=== PATIENT | male | born 1940 | race Caucasian/White ===

== ENCOUNTER 2019-05-04 09:16 | Emergency (ER) | payer OTHER ==
--- OUTSIDE RECORDS SUMMARY | 2019-05-04 09:27 | XMS REPORT | Continuity of Care Document ---
:1940 External Reference #:[id number] Author Name Tejal Knight NP (transmitted by agent of provider Elida Florentino) Address [address] [facility], [address] [place] [id number] Care Team Providers Name Role Phone Tripp Rose MD - Endocrinology, Care Team Information Retail Business Manager Diabetes & Metabolism Linden Gamez MD - Cardiovascular Care Team Information Retail Business Manager Disease Problems Active Problems Provider Date Pure hypercholesterolemia Linden Gamez M.D. Onset: 01/25/2012 Dizziness and giddiness Linden Gamez M.D. Onset: 04/28/2011 Type 2 diabetes mellitus Linden Gamez M.D. Onset: 04/28/2011 Coronary arteriosclerosis Linden Gamez M.D. Onset: 04/28/2011 Aortic valve disorder Linden Gamez M.D. Onset: 04/28/2011 Social History Type Date Description Comments Sex Unknown Tobacco Use Start: Unknown Never Smoked Cigarettes Smoking Status Reviewed: 03/18/19 Never Smoked Cigarettes ETOH Use Denies alcohol use Tobacco Use Start: Unknown Patient has never smoked Recreational Drug Use Denies Drug Use Exercise Type/Frequency 03/2015 walks daily [address] [facility] Exercise Type/Frequency Exercises regularly Allergies, Adverse Reactions, Alerts Active Allergies Reaction Severity Comments Date PCN hives 05/26/2004 Ragweed 01/25/2012 Lactose (Intolerance) 01/25/2012 Medications Active Medications SIG Qnty Indications Ordering Provider Date Atorvastatin Calcium 1 by mouth every Unknown 02/17/2019 40mg day Tablets Flomax 1 by mouth every Unknown 02/17/2019 0.4mg Capsules day Flonase Allergy Relief 1 puff nasal Unknown 02/17/2019 once a day 50mcg/Act Suspension Diltiazem HCL ER 1 by mouth every 90caps I25.118 Linden Dorsey 07/18/2018 120mg day Magnolia Gamez Caps ER 24HR Plavix 1 by mouth every 90tabs I25.118 Linden Dorsey 09/25/2016 75mg Tablets day Magnolia Gamez Potassium Citrate 1080 mg 3 tablet Radha Davidson MD 08/15/2016 po twice daily Nitrostat one sl q5min up 30tabs I25.118 Linden Dorsey 06/15/2015 0.4mg Tablets to 3 doses as Magnolia Gamez Sub needed Aspirin 1 daily Linden Dorsey 12/20/2006 81mg Tablets Magnolia Gamez Allopurinol 1 daily 30tabs Linden Dorsey 12/20/2006 300mg Tablets Magnolia Gamez Fibercon (650mg) 1 tab Linden Dorsey 05/26/2004 500mg Chewtabs daily Magnolia Gamez Metformin HCL 1 by mouth two 60tabs Unknown 1000mg times per day Tablets Avapro 1 by mouth every 90tabs Linden Dorsey 75mg Tablets day Magnolia Gamez Vitamin C 1 by mouth every Unknown 1000mg Capsules day Finasteride 1 by mouth every Unknown 5mg Tablets day Vitamin B-12 1 by mouth every Unknown 500mcg day Tablets Immunizations Description No Information Available Vital Signs Date Vital Result Comment 03/18/2019 1:56pm Height 74 inches 6'2" Weight 197.00 lb Per pt Heart Rate 92 /min BP Systolic Sitting 144 mmHg Lue reg cuff BP Diastolic Sitting 78 mmHg Lue reg cuff O2 % BldC Oximetry 94 % On Ra BMI (Body Mass Index) 25.3 kg/m2 02/19/2019 9:30am Height 74 inches 6'2" Weight 199.00 lb Heart Rate 58 /min BP Systolic Sitting 124 mmHg BP Diastolic Sitting 60 mmHg O2 % BldC Oximetry 97 % BMI (Body Mass Index) 25.5 kg/m2 Neck Circumference in inches 17.75 Results Description No Information Available Procedures Date Code Description Status 03/05/2019 91800 Sleep Study Unattended,HRT Rate,Oxygen Sat,Resp Completed Effort/Airflow 02/18/2019 99927 EKG Tracing & Interpretation Completed 12/16/2018 07600 EKG Tracing & Interpretation Completed Medical Devices Description No Information Available Encounters Type Date Location Provider Dx Diagnosis Office Visit 03/18/2019 [facility] G47.33 Obstructive sleep 2:00p [facility] Knight apnea (adult) Elton (pediatric) R09.02 Hypoxemia Office Visit 02/19/2019 10:00a [facility] Kimmy Hodge R06.83 [facility] BILLY R09.02 Hypoxemia Office Visit 02/18/2019 8:40a [facility] Linden Dorsey I35.0 Nonrheumatic Magnolia Gamez aortic (valve) stenosis I25.118 [facility] [place] [facility] pctrs E78.00 Pure hypercholesterolemia, unspecified I10 Essential (primary) hypertension Office Visit 12/16/2018 11:30a [facility] Marina SEmber I35.0 Nonrheumatic Foster, N.P. aortic (valve) stenosis I25.118 [facility] heart disease of [place] [facility] pctrs E78.00 Pure hypercholesterolemia, unspecified I10 Essential (primary) hypertension G47.9 Sleep disorder, unspecified Assessments Date Code Description Provider 03/18/2019 G47.33 Obstructive sleep apnea (adult) Tejal Knight NP (pediatric) 03/18/2019 R09.02 Hypoxemia Tejal Knight NP 03/05/2019 G47.33 Obstructive sleep apnea (adult) Kimmy Hodge MD (pediatric) 02/19/2019 R06.83 Snoring Kimmy Hodge MD 02/19/2019 R09.02 Hypoxemia Kimmy Hodge MD 02/18/2019 I35.0 Nonrheumatic aortic (valve) stenosis Linden Gamez M.D. 02/18/2019 I25.118 Atherosclerotic heart disease of [place] Linden Gamez M.D. coronary artery with other forms of angina pectoris 02/18/2019 E78.00 Pure hypercholesterolemia, unspecified Linden Gamez M.D. 02/18/2019 I10 Essential (primary) hypertension Linden Gamez M.D. 12/16/2018 R94.31 Abnormal electrocardiogram [ECG] [EKG] Linden Gamez M.D. 12/16/2018 I35.0 Nonrheumatic aortic (valve) stenosis Marina Thomas, N.P. 12/16/2018 I25.118 Atherosclerotic heart disease of [place] Marina Thomas, N.P. coronary artery with other forms of angina pectoris 12/16/2018 I25.118 Atherosclerotic heart disease of [place] Linden Gamez M.D. coronary artery with other forms of angina pectoris 12/16/2018 E78.00 Pure hypercholesterolemia, unspecified Marina SEmber Thomas, N.P. 12/16/2018 I10 Essential (primary) hypertension Marina Thomas, N.P. 12/16/2018 I35.0 Nonrheumatic aortic (valve) stenosis Linden Gamez M.D. 12/16/2018 G47.9 Sleep disorder, unspecified Marina S. Foster, N.P. Plan of Treatment Future Appointment(s):05/01/2019 9:30 am - Tejal Knight NP at [facility]03/18/2019 - Tejal Knight NPG47.33 Obstructive sleep apnea (adult) (pediatric)Follow up:6 weeksRecommendations:You are being set up with CPAP for your sleep apnea through [facility] . They will call you to set up an appointment to get fit for a mask and molded goods spot picker your machine. If you have difficulty with your equipment, or need to replace your mask or hoses, please contact your homecare agency. If you have any further questions, please call the [facility] at [phone] Ifyou have any sleepiness while driving you MUST avoid operating a vehicle or machinery. If you feel tired while driving gizzard puller and take a nap or switch drivers. If you know you are sleepy and need togo somewhere, arrange for a ride or use public transportation. It is very important to not risk yoursafety or the safety of others.R09.02 Hypoxemia Functional Status Description No Information Available Mental Status Description No Information Available Referrals Refer to Reason for Referral Status Appt Date Kimmy Hodge MD eval for PHOEBE Sent 02/19/[address] [place] [address] [phone]
--- OUTSIDE RECORDS SUMMARY | 2019-05-04 09:27 | XMS REPORT | Continuity of Care Document ---
:1940 External Reference #:[id number] Author Name Tejal Knight NP (transmitted by agent of provider Elida Florentino) Address [address] [facility], [address] [place] [id number] Care Team Providers Name Role Phone Tripp Rose MD - Endocrinology, Care Team Information Housing Specialist Diabetes & Metabolism Linden Gamez MD - Cardiovascular Care Team Information Housing Specialist Disease Problems Active Problems Provider Date Pure hypercholesterolemia Linden Gamez M.D. Onset: 01/25/2012 Dizziness and giddiness Linden Gamez M.D. Onset: 04/28/2011 Type 2 diabetes mellitus Linden Gamez M.D. Onset: 04/28/2011 Coronary arteriosclerosis Linden Gamez M.D. Onset: 04/28/2011 Aortic valve disorder Linden Gamez M.D. Onset: 04/28/2011 Social History Type Date Description Comments Sex Unknown Tobacco Use Start: Unknown Never Smoked Cigarettes Smoking Status Reviewed: 05/01/19 Never Smoked Cigarettes ETOH Use Denies alcohol use Tobacco Use Start: Unknown Patient has never smoked Recreational Drug Use Denies Drug Use Exercise Type/Frequency 03/2015 walks daily 1 mile up [facility] Exercise Type/Frequency Exercises regularly Allergies, Adverse Reactions, [...] Magnolia Gamez Allopurinol 1 daily 30tabs Linden Dosrey 12/20/2006 300mg Tablets Magnolia Gamez Fibercon (650mg) [...] Available Vital Signs Date Vital Result Comment 05/01/2019 9:21am Height 74 inches 6'2" Weight 199.12 lb Per pt this am Heart Rate 60 /min BP Systolic Sitting 140 mmHg Lue large cuff BP Diastolic Sitting 80 mmHg Lue large cuff O2 % BldC Oximetry 98 % On Ra BMI (Body Mass Index) 25.6 kg/m2 03/18/2019 1:56pm Height 74 inches 6'2" Weight 197.00 lb Per pt Heart Rate 92 /min BP Systolic Sitting 144 mmHg Lue reg cuff BP Diastolic Sitting 78 mmHg Lue reg cuff O2 % BldC Oximetry 94 % On Ra BMI (Body Mass Index) 25.3 kg/m2 Results Description No Information Available Procedures Date Code Description Status 03/05/2019 37350 Sleep Study Unattended,HRT Rate,Oxygen Sat,Resp Completed Effort/Airflow 02/18/2019 57287 EKG Tracing & Interpretation Completed 12/16/2018 29085 EKG Tracing & Interpretation Completed Medical Devices Description No Information Available Encounters Type Date Location Provider Dx Diagnosis Office Visit 03/18/2019 [facility] Te[facility]al G47.33 Obstructive sleep 2:00p [facility] apnea (adult) [place] (pediatric) R09.02 Hypoxemia Office Visit 02/19/2019 10:00a [facility] Kimmy Hodge R06.83 [facility] [place] [facility] R09.02 Hypoxemia Office Visit 02/18/2019 8:40a [facility] Linden Dorsey I35.0 Nonrheumatic Magnolia Gamez aortic (valve) stenosis I25.118 Athscl heart disease of [place] [facility] pctrs E78.00 Pure hypercholesterolemia, unspecified I10 Essential (primary) hypertension Office Visit 12/16/2018 11:30a [facility] Marina Simon I35.0 Nonrheumatic William NEmberP. aortic (valve) stenosis I25.118 Athscl heart disease of [place] [facility] pctrs E78.00 Pure hypercholesterolemia, unspecified I10 Essential (primary) hypertension G47.9 Sleep disorder, unspecified Assessments Date Code Description Provider 05/01/2019 G47.33 Obstructive sleep apnea (adult) Tejal Knight NP (pediatric) 05/01/2019 R09.02 Hypoxemia Tejal Knight NP 03/18/2019 G47.33 Obstructive sleep apnea (adult) Tejal Knight NP (pediatric) 03/18/2019 R09.02 Hypoxemia Tejal Knight NP 03/05/2019 G47.33 Obstructive sleep apnea (adult) Kimmy Hogde MD (pediatric) 02/19/2019 R06.83 Snoring Kimmy Hodge MD 02/19/2019 R09.02 Hypoxemia Kimmy Hodge MD 02/18/2019 I35.0 Nonrheumatic aortic (valve) stenosis Linden Gamez M.D. 02/18/2019 I25.118 Atherosclerotic heart disease of [place] Linden Gamez M.D. coronary artery with other forms of angina pectoris 02/18/2019 E78.00 Pure hypercholesterolemia, unspecified Linden Gamez M.D. 02/18/2019 I10 Essential (primary) hypertension Linden Gamez M.D. 12/16/2018 R94.31 Abnormal electrocardiogram [ECG] [EKG] Linden Gamez M.D. 12/16/2018 I35.0 Nonrheumatic aortic (valve) stenosis Marina S. Foster, N.P. 12/16/2018 I25.118 Atherosclerotic heart disease of [place] Marina S. Foster, N.P. coronary artery with other forms of angina pectoris 12/16/2018 I25.118 Atherosclerotic heart disease of [place] Linden Gamez M.D. coronary artery with other forms of angina pectoris 12/16/2018 E78.00 Pure hypercholesterolemia, unspecified Marina S. Foster, N.P. 12/16/2018 I10 Essential (primary) hypertension Marina S. Foster, N.P. 12/16/2018 I35.0 Nonrheumatic aortic (valve) stenosis Linden Gamez M.D. 12/16/2018 G47.9 Sleep disorder, unspecified Marina S. Foster, N.P. Plan of Treatment Future Appointment(s):08/07/2019 9:30 am - Tejal Knight NP at [facility]05/01/2019 - Tejal Knight NPG47.33 Obstructive sleep apnea (adult) (pediatric)Follow up:3 monthsRecommendations:If you have difficulty with your equipment, or need to replace your mask or hoses, please contact your homecare agency, [facility] . If you have any further questions, please callthe Sleep Disorder Center at If you have any sleepiness while driving you MUST avoid operating a vehicle or machinery. If you feel tired while driving hand assembler for puller over and take a nap or switch drivers. If you know you are sleepy and need to go somewhere, arrange for a ride or use public transportation. It is very important to not risk your safety or the safety of others.R09.02 Hypoxemia Functional Status Description No Information Available Mental Status Description No Information Available Referrals Refer to Reason for Referral Status Appt Date Kimmy Hodge MD evyasmine for PHOEBE Sent 02/19/[address] [place] [address] [phone]
[2019-05-04] MEDS ORDERED: NS 0.9% 1000 ML** 1,000 ML IV ONE ×2 (09:28→10:24)
[2019-05-04] MEDS ORDERED: Famotidine IV* 10 MG/ML 2 ML (20 mg) IV SLOW PU ONE (09:30)
[2019-05-04] MEDS ORDERED: Dexamethasone IV* 4 MG/ML 1 ML (4 MG) IV SLOW PU ONE (09:30)
[2019-05-04] MEDS ORDERED: diPHENhydraMINE IV* 50 MG/ML 1 ml VIAL (BENADRYL) IV ONE (09:30)
--- NOTE | 2019-05-04 09:30 | ED ---
Skin Complaint - HPI Summary HPI Summary: This pt is a 78 Y/O M presenting to [facility] with a CC of a diffuse rash. He states that the rash is itchy and has been irritating since the onset. He states that he is weak and had diarrhea and nausea starting yesterday. He denies any vomiting. They ate out on 05/02/2019 and had [place] food. He states that he did not eat anything unordinary while they were at dinner. He denies any pain associated with the rash but states that the rash is very itchy. He denies any throat swelling, angioedema, and SOB. He has no known aggravating or alleviating factors. He has a PMHx of type 2 DM, CHF, and HTN. He states that he has an allergy to penicillin. - History of Current Complaint Chief Complaint: EDRashSkinAbscess Time Seen by Provider: 05/04/19 09:20 Stated Complaint: GENERAL ILLNESS PER EMS Hx Obtained From: Patient Onset/Duration: Started Days Ago - 2, Still Present Skin Exposure Onset/Duration: Days Ago - 2 Current Severity: None Pain Intensity: 0 Pain Scale Used: 0-10 Numeric Skin Location: Diffuse Character: Redness Aggravating Symptom(s): Nothing Alleviating Symptom(s): Nothing Associated Signs & Symptoms: Negative - throat swelling, angioedema, pain, and SOB, Nausea, Weakness, Rash - Additional Pertinent History Primary Care Physician: [id number] - Allergy/Home Medications Allergies/Adverse Reactions: Allergies Allergy/AdvReac Type Severity Reaction Status Date / Time Penicillins Allergy Mild Numbness Verified 03/19/19 11:36 LACTOSE INTOLERANCE Allergy Mild GI Upset Uncoded 03/19/19 11:37 PMH/Surg Hx/FS Hx/Imm Hx Previously Healthy: Yes Endocrine/Hematology History: Reports: Hx Anticoagulant Therapy, Hx Diabetes - II, Hx Anemia Denies: Hx Systemic Lupus Erythematosus Cardiovascular History: Reports: Hx Angina, Hx Coronary Artery Disease, Hx Hypercholesterolemia, Hx Hypertension - on medication Denies: Hx Congestive Heart Failure, Hx Pacemaker/ICD Respiratory History: Reports: Hx Seasonal Allergies GI History: Reports: Hx Gastrointestinal Bleed, Other GI Disorders - lactose intolerace Denies: Hx Jaundice History: Reports: Hx Kidney Stones - catheter treatment, Hx Renal Disease - kidney stones Denies: Hx Dialysis Musculoskeletal History: Reports: Hx Arthritis - mild knees, hands and hips Denies: Hx Rheumatoid Arthritis - OSTEOARTHRITIS Sensory History: Reports: Hx Contacts or Glasses Denies: Hx Hearing Aid Opthamlomology History: Reports: Hx Contacts or Glasses Psychiatric History: Denies: Hx Panic Disorder - Cancer History Cancer Type, Location and Year: PROSTATE Hx Chemotherapy: No Hx Radiation Therapy: Yes - Surgical History Surgical History: Yes Surgery Procedure, Year, and Place: MULTIPLE HEART CATH WITH 5 STENTS TOTAL - 1 - [place] 2-5 [facility]. COLONOSCOPIES & ENDOSCOPIES(BENIGN). LITHOTRIPSY TO BREAK UP KIDNEY STONE. - Immunization History Immunizations Up to Date: Yes Infectious Disease History: Denies: Traveled Outside the [place] in Last 30 Days - Family History Known Family History: Positive: Diabetes Negative: Hypertension - Social History Occupation: Employed Full-time Lives: With Family Alcohol Use: Rare Hx Substance Use: No Substance Use Type: Reports: None Hx Tobacco Use: No Smoking Status (MU): Never Smoked Tobacco Review of Systems ENT: Negative - throat swelling, tongue swelling Negative: Shortness Of Breath Positive: Diarrhea, Nausea. Negative: Vomiting Positive: Rash All Other Systems Reviewed And Are Negative: Yes Physical Exam - Summary Physical Exam Summary: VITAL SIGNS: Reviewed. GENERAL: Patient is a well-developed and nourished male who is lying comfortable in the stretcher. Patient is not in any acute respiratory distress. HEAD AND FACE: No signs of trauma. No ecchymosis, hematomas or skull depressions. No sinus tenderness. EYES: PERRLA, EOMI x 2, No injected conjunctiva, no nystagmus. EARS: Hearing grossly intact. Ear canals and tympanic membranes are within normal limits. MOUTH: Oropharynx within normal limits. NECK: Supple, trachea is midline, no adenopathy, no JVD, no carotid bruit, no c- spine tenderness, neck with full ROM. CHEST: Symmetric, no tenderness at palpation LUNGS: Clear to auscultation bilaterally. No wheezing or crackles. CVS: Regular rate and rhythm, S1 and S2 present, no murmurs or gallops appreciated. ABDOMEN: Soft, non-tender. No signs of distention. No rebound no guarding, and no masses palpated. Bowel sounds are normal. EXTREMITIES: FROM in all major joints, no edema, no cyanosis or clubbing. NEURO: Alert and oriented x 3. No acute neurological deficits. Speech is normal and follows commands. SKIN: Dry and warm. Diffuse patches of erythema with irregular borders. Triage Information Reviewed: Yes Vital Signs On Initial Exam: Temp Pulse Resp BP SpO2 FiO2 97.4 F 75 19 130/73 97 05/04/19 09:16 05/04/19 09:16 05/04/19 09:16 05/04/19 09:16 05/04/19 09:16 Vital Signs Reviewed: Yes Procedures - Sedation Patient Received Moderate/Deep Sedation with Procedure: No Diagnostics - Laboratory Result Diagrams: 05/04/19 09:34 05/04/19 09:34 Lab Statement: Any lab studies that have been ordered have been reviewed, and results considered in the medical decision making process. - Radiology CXR Radiology Interpretation Completed By: Radiologist Summary of Radiographic Findings: No evidence for acute intrathoracic disease. ED physician has review this report. - EKG 1002 Cardiac Rate: NL - 85 BPM EKG Rhythm: Sinus Rhythm ST Segment: Normal EKG Comparison: No Significant Change - 08/27/2015 Summary of EKG Findings: An EKG at 1002 reveals Sinus arrhythmia at 85 BPM, nml axis, Q waves in leads II, III, AVF. No STEMI. No acute changes since 2015. Interpreted by Dr. Reinoso, 1009 05/04/2019. Course/Dx - Course Assessment/Plan: This pt is a 78 Y/O M presenting to [facility] with a CC of a diffuse rash. He states that the rash is itchy and has been irritating since the onset. He states that he is weak and had diarrhea and nausea starting yesterday. He denies any vomiting. They ate out on 05/02/2019 and had [place] food. He states that he did not eat anything unusual while they were at dinner. He denies any pain associated with the rash but states that the rash is very itchy. He denies any throat swelling, angioedema, and SOB. He has no known aggravating or alleviating factors. He has a PMHx of type 2 DM, CHF, and HTN. He states that he has an allergy to penicillin. Blood work without a significant abnormality except for that she is under 0.4, glucose is 283, lactic acid is 2.3 with no signs of infection. I believe lactic acid is elevated secondary to hyperglycemia. Magnesium was 1.4 for which he was given magnesium IV. Urinalysis is negative for UTI. In the ED course the patient was given Benadryl, Pepcid and slight also prednisone since the patient is diabetic. After these medications the symptoms resolved. Patient was eating and drinking well with no complaints. Therefore the patient will be discharged home with follow-up with PCP. Patient was recommended to follow up his sugars closely. He understands and agrees. I discussed all the findings and test results with the patient. Patient was instructed to return to the emergency room immediately if any of the symptoms return or worsen . Plan of care was discussed with the patient and understands and agrees. All questions were answered at patient satisfaction. There were no further complaints or concerns. Lung exam before discharge: CTA B/L. Good air exchange. No wheezing or crackles heard. CVS: S1 and S2 present. No murmurs appreciated. Patient is alert and oriented x 3. Patient is hemodynamically stable. Patient will be discharged home with follow up barbering teacher in the next 2-3 days - Diagnoses Provider Diagnoses: Allergic reaction, Weakness Discharge ED - Sign-Out/Discharge Documenting (check all that apply): Patient Departure - discharge - Discharge Plan Condition: Stable Disposition: HOME Prescriptions: diPHENhydraMINE PO* [Benadryl PO 25 MG TAB*] 25 mg PO TID PRN #30 tab PRN Reason: Allergy Symptoms Famotidine TAB* [Pepcid 20 MG TAB*] 20 mg PO DAILY #10 tab predniSONE 10 mg TAB [Deltasone 10 MG TAB*] 10 mg PO DAILY #4 tab Patient Education Materials: Urticaria (ED), Allergies (ED), Weakness (ED) Referrals: Tripp Rose MD [Primary Care Provider] - 2 Days Additional Instructions: PLEASE RETURN TO THE ED IMMEDIATELY FOR WORSENING OR CONCERNING SYMPTOMS AND FOLLOW UP WITH YOUR PRIMARY CARE PHYSICIAN IN 1-3 DAYS. - Billing Disposition and Condition Condition: STABLE Disposition: Home - Attestation Statements Document Initiated by Scribe: Yes Documenting Scribe: Gary Hidalgo Provider For Whom Isai is Documenting (Include Credential): Bj Reinoso MD Scribe Attestation: Gary Willis, scribed for Bj Reinoso MD on 05/04/19 at 1813. Scribe Documentation Reviewed: Yes Provider Attestation: The documentation as recorded by the Gary avery accurately reflects the service I personally performed and the decisions made by me, Bj Reinoso MD Status of Scribe Document: Viewed
[2019-05-04 09:47] LABS: ABS Eosinophils 0.2 10^3/ul (0-0.6); ABS Lymphocytes 0.4 10^3/ul (1.0-4.8); ABS Monocytes 0.7 10^3/ul (0-0.8); ABS Neutrophils 10.1 10^3/ul (1.5-7.7); Eosinophil % 1.4 %; Hematocrit 46 % (42-52); Hemoglobin 15.8 g/dL (14.0-18.0); Lymphocyte % 3.2 %; Mean Corpuscular HGB Conc 35 g/dL (31-36); Mean Corpuscular Hemoglobin 31 pg (27-31); Mean Corpuscular Volume 89 fL (80-94); Mean Platelet Volume 8.5 fL (7.4-10.4); Nucleated Red Blood Cells % 0.1; Platelet Count 168 10^3/uL (150-450); Red Blood Count 5.15 10^6 /uL (4.18-5.48); Red Cell Distribution Width 15 % (10-15); White Blood Count 11.4 10^3/uL (3.5-10.8)
[2019-05-04 10:00] LABS: ALT 11 U/L (7-52); AST 11 U/L (13-39); Albumin 3.5 g/dL (3.2-5.2); Albumin/Globulin Ratio 1.6 (1-3); Alkaline Phosphatase 80 U/L (34-104); Anion Gap 8 mmol/L (2-11); BUN/Creatinine Ratio 27.5 (8-20); Blood Urea Nitrogen 30 mg/dL (6-24); CO2 Carbon Dioxide 24 mmol/L (22-32); Calcium 8.2 mg/dL (8.6-10.3); Chloride 103 mmol/L (101-111); Creatine Kinase 81 U/L (10-223); EGFR African American 79.4 (>60); EGFR Non-African American 65.6 (>60); Globulin 2.2 g/dL (2-4); Glucose 282 mg/dL (70-100); Magnesium 1.4 mg/dL (1.9-2.7); Sodium 135 mmol/L (135-145); Total Protein 5.7 g/dL (6.4-8.9)
[2019-05-04 10:01] LABS: Troponin I 0.01 ng/mL (<0.03)
[2019-05-04] MEDS ORDERED: Magnesium Sulfate 1 GM IV* 1 GM/100 ML BAG IV ONE (10:24)
[2019-05-04 10:30] LABS: Alcohol < 10 mg/dL (<10)
[2019-05-04 10:45] LABS: TSH (Thyroid Stimulating Horm) 1.93 mcIU/mL (0.34-5.60)
[2019-05-04 11:56] LABS: Urine Appearance Clear; Urine Bilirubin Negative (Negative); Urine Blood Negative (Negative); Urine Color Yellow; Urine Glucose 3+(>=500 mg/dL) (Negative); Urine Ketones Negative (Negative); Urine Nitrite Negative (Negative); Urine Protein Negative (Negative); Urine Specific Gravity 1.015 (1.010-1.030); Urine Urobilinogen Negative (Negative)
[2019-05-04 12:32] VITALS: BP 151/81
== END 2019-05-04 12:31 | disposition home or self-care (01) ==
LOC: ED 09:16
DX: T78.40XA Allergy, unspecified, initial encounter (principal); R53.1 Weakness; X58.XXXA Exposure to other specified factors, initial encounter; Z88.0 Allergy status to penicillin; E11.9 Type 2 diabetes mellitus without complications; I50.9 Heart failure, unspecified; I11.0 Hypertensive heart disease with heart failure; D64.9 Anemia, unspecified; I25.10 Atherosclerotic heart disease of native coronary artery without angina pectoris; E78.00 Pure hypercholesterolemia, unspecified; Z95.5 Presence of coronary angioplasty implant and graft; Z85.46 Personal history of malignant neoplasm of prostate; Z87.442 Personal history of urinary calculi; Z79.899 Other long term (current) drug therapy
CPT/HCPCS: 36415; 71045; 80053; 80320; 81003; 82550; 83605; 83735; 84443; 84484; 85025; 86140; 93005; 96361; 96365; 96375; 99282; G0480; J1100; J1200; J3475

== ENCOUNTER 2019-05-04 19:43 | Inpatient (IN) | payer OTHER ==
--- NOTE | 2019-05-04 19:51 | ED ---
Dizziness - HPI Summary HPI Summary: The patient is a 78 y/o male arriving by ambulance to [facility] with a chief complaint of lightheadedness and rash worsening today. He reports that he had been seen earlier in the day for the lightheadedness he began experiencing last night accompanied by nausea and a sustained fall. He was diagnosed with possible allergic reaction as he had new mushrooms and seafood at a Italian restaurant last night. After being discharged from the ED, he was prescribed Benadryl and Prednisone, which he has taken today. He then developed some diarrhea today. After dinner, he also noticed a diffuse erythematous and pruritic rash and return of the lightheadedness, which has been causing him to have instability ambulating. He denies a syncopal episode or SOB. EMS report stable vitals with BP of 110/70mmHg. He is not currently in pain. PMHx: DM, HTN , HLD, angina, cardiac stents, CAD, kidney stones. Nonsmoker, rare EtOH, no substance use. Medications reviewed. Allergies noted. - History Of Current Complaint Stated Complaint: HIVES PER EMS Hx Obtained From: Patient, EMS Onset/Duration: Still Present Severity Currently: Moderate Character: Lightheaded Aggravating Factor(s): Other - ambulation Alleviating Factor(s): Rest, Lying Down Associated Signs And Symptoms: Positive: Nausea, Diarrhea, Unsteady Gait, Other : - diffuse erythematous and pruritic rash; Negative: syncope. Negative: SOB - Allergies/Home Medications Allergies/Adverse Reactions: Allergies Allergy/AdvReac Type Severity Reaction Status Date / Time Penicillins Allergy Mild Numbness Verified 03/19/19 11:36 lactose AdvReac Mild GI Upset Verified 05/04/19 22:42 PMH/Surg Hx/FS Hx/Imm Hx Endocrine/Hematology History: Reports: Hx Anticoagulant Therapy, Hx Diabetes - II, Hx Anemia Denies: Hx Systemic Lupus Erythematosus Cardiovascular History: Reports: Hx Angina, Hx Coronary Artery Disease, Hx Hypercholesterolemia, Hx Hypertension - on medication Denies: Hx Congestive Heart Failure, Hx Pacemaker/ICD Respiratory History: Reports: Hx Seasonal Allergies GI History: Reports: Hx Gastrointestinal Bleed, Other GI Disorders - lactose intolerace Denies: Hx Jaundice History: Reports: Hx Kidney Stones - catheter treatment, Hx Renal Disease - kidney stones Denies: Hx Dialysis Musculoskeletal History: Reports: Hx Arthritis - mild knees, hands and hips Denies: Hx Rheumatoid Arthritis - OSTEOARTHRITIS Sensory History: Reports: Hx Contacts or Glasses Denies: Hx Hearing Aid Opthamlomology History: Reports: Hx Contacts or Glasses Psychiatric History: Denies: Hx Panic Disorder - Cancer History Cancer Type, Location and Year: PROSTATE Hx Chemotherapy: No Hx Radiation Therapy: Yes - Surgical History Surgical History: Yes Surgery Procedure, Year, and Place: MULTIPLE HEART CATH WITH 5 STENTS TOTAL - 1 - [place] 2[facility]. COLONOSCOPIES & ENDOSCOPIES(BENIGN). LITHOTRIPSY TO BREAK UP KIDNEY STONE. - Family History Known Family History: Positive: Diabetes Negative: Hypertension - Social History Alcohol Use: Rare Hx Substance Use: No Substance Use Type: Reports: None Hx Tobacco Use: No Smoking Status (MU): Never Smoked Tobacco Review of Systems Negative: Shortness Of Breath Positive: Diarrhea, Nausea Positive: Rash - diffuse, erythematous, pruritic Neurological: Other - lightheadedness with unsteady gait Negative: Syncope All Other Systems Reviewed And Are Negative: Yes Physical Exam - Summary Physical Exam Summary: Appearance: Well-appearing, Well-nourished, lying in bed comfortably Skin: Warm, dry, Diffuse urticarial rash on the trunk and to a lesser extent on upper extremities Eyes: sclera anicteric, no conjunctival pallor ENT: mucous membranes moist, pharynx appears normal Neck: Supple, nontender Respiratory: Clear to auscultation, no signs of respiratory distress Cardiovascular: Normal S1, S2. No murmurs. Normal distal pulses in tibial and radial bilaterally. Abdomen: Soft, nontender, normal active bowel sounds present Musculoskeletal: Normal, Strength/ROM Intact Neurological: A&Ox3, awake and alert, mentation is normal, speech is fluent and appropriate Psychiatric: affect is normal, does not appear anxious or depressed Triage Information Reviewed: Yes Vital Signs Reviewed: Yes Procedures - Sedation Patient Received Moderate/Deep Sedation with Procedure: No Diagnostics - Laboratory Result Diagrams: 05/04/19 21:04 05/04/19 20:26 Lab Statement: Any lab studies that have been ordered have been reviewed, and results considered in the medical decision making process. Dizzy Course/Dx - Course Course Of Treatment: 78 y/o male with diabetic and cardiac history presenting by ambulance with concern for diffuse erythematous and pruritic rash, nausea, diarrhea, and episodes of lightheadedness with unsteady gait but without a complete syncopal event, although he has fallen. No SOB. He was seen earlier today for a possible allergic reaction, which he has been taking Benadryl and Prednisone for since discharge. Physical exam reveals diffuse urticarial rash on the trunk and to a lesser extent on the upper extremities, but his exam is otherwise benign. Blood work obtained to reveal absolute lymphocytes of 0.3, carbon dioxide of 18, BUN of 28, glucose of 301, calcium of 7.7, lactic acid of 3.3, direct bili of 0.2, AST of 12, and total protein of 5.3. In the ED course, the patient was administered fluids, Atarax, and Decadron 8mg. POC blood glucose of 329 so patient will be given Insulin. Dr. Frazier from the hospitalist services has accepted the patient for admission. Patient understands and agrees with the plan. - Diagnoses Provider Diagnoses: Anaphylaxis - Provider Notifications Discussed Care Of Patient With: Erin Frazier - hospitalist Time Discussed With Above Provider: 20:35 Instructed by Provider To: Other - I discussed the patients case with Dr. Frazier , who accepts the patient for admission. Discharge ED - Sign-Out/Discharge Documenting (check all that apply): Patient Departure - Patient accepted for admission by Dr. Frazier. - Discharge Plan Condition: Stable Disposition: ADMITTED TO [facility] - Billing Disposition and Condition Condition: STABLE Disposition: Admitted to [facility] - Attestation Statements Document Initiated by Isai: Yes Documenting Scribe: Quita Guadarrama Provider For Whom Isai is Documenting (Include Credential): Dr. Jarek Rucker MD Scribe Attestation: Quita Willis scribed for Dr. Jarek Rucker MD on 05/05/19 at 0126. Scribe Documentation Reviewed: Yes Provider Attestation: The documentation as recorded by the Quita avery accurately reflects the service I personally performed and the decisions made by me, Dr. Jarek Rucker MD Status of Scribe Document: Viewed
[2019-05-04] MEDS ORDERED: hydrOXYzine HCL TAB* 50 MG PO ONE (20:02)
[2019-05-04] MEDS ORDERED: NS 0.9% 1000 ML** 1,000 ML IV ONE (20:02)
[2019-05-04] MEDS ORDERED: Dexamethasone IV* 4 MG/ML 1 ML (4 MG) PO ONE (20:28)
[2019-05-04] MEDS ORDERED: Insulin REGULAR(*) 1 UNITS UNIT SUBCUT ONE (20:29)
[2019-05-04] MEDS ORDERED: Dexamethasone IV* 4 MG/ML 1 ML (4 MG) IV SLOW PU ONE (20:35)
[2019-05-04 20:48] LABS: BUN/Creatinine Ratio 24.1 (8-20); Calcium 7.7 mg/dL (8.6-10.3); EGFR African American 73.9 (>60); EGFR Non-African American 61.1 (>60); Potassium 4.2 mmol/L (3.5-5.0)
[2019-05-04 21:21] LABS: Albumin 3.2 g/dL (3.2-5.2); Albumin/Globulin Ratio 1.5 (1-3); Globulin 2.1 g/dL (2-4); Indirect Bilirubin 0.7 mg/dL (0.3-1.0); Total Bilirubin 0.9 mg/dL (0.2-1.0); Total Protein 5.3 g/dL (6.4-8.9)
[2019-05-04 21:25] LABS: ABS Lymphocytes 0.3 10^3/ul (1.0-4.8); ABS Monocytes 0.2 10^3/ul (0-0.8); ABS Neutrophils 5.9 10^3/ul (1.5-7.7); Eosinophil % 0.5 %; Hematocrit 43 % (42-52); Hemoglobin 14.6 g/dL (14.0-18.0); Lymphocyte % 5.1 %; Mean Corpuscular HGB Conc 34 g/dL (31-36); Mean Corpuscular Hemoglobin 30 pg (27-31); Mean Corpuscular Volume 89 fL (80-94); Mean Platelet Volume 8.7 fL (7.4-10.4); Nucleated Red Blood Cells % 0.1; Platelet Count 183 10^3/uL (150-450); Red Blood Count 4.81 10^6 /uL (4.18-5.48); Red Cell Distribution Width 15 % (10-15); White Blood Count 6.5 10^3/uL (3.5-10.8)
[2019-05-04] MEDS ORDERED: Nitroglycerin TAB 0.4 MG* 0.4 MG TAB SL PRN (22:11)
[2019-05-04] MEDS ORDERED: Ondansetron INJ* 2 MG/ML VIAL IV PRN (22:13)
[2019-05-04] MEDS ORDERED: Acetaminophen TAB* 325 MG PO PRN (22:13)
[2019-05-04] MEDS ORDERED: Dextrose 50% VIAL 50 ml IV PUSH PRN (22:15)
[2019-05-04] MEDS ORDERED: NS 0.9% 1000 ML** 1,000 ML IV SCH (22:15)
[2019-05-05] MEDS: diPHENhydraMINE IV* 50 MG/ML 1 ml VIAL (BENADRYL) IV SCH ×4 (02:02→20:14)
[2019-05-05] MEDS: Enoxaparin(*) 40 MG/0.4 ML SYR SUBCUT SCH ×2 (02:03→20:17)
[2019-05-05] MEDS: Insulin LISPRO* 1 UNITS UNIT SUBCUT SCH ×7 (02:39→20:33)
--- NOTE | 2019-05-05 03:17 | HP ---
CC: Dr. Tripp Rose HISTORY AND PHYSICAL: DATE OF ADMISSION: 05/04/19 PRIMARY CARE PROVIDER: Dr. Tripp Rose. ASSISTED LIVING ADMINISTRATOR: Marielle Hussein, his . CODE STATUS: Full. SOURCE OF INFORMATION: HPI is obtained from the patient and his ; they are good historians. HISTORY OF PRESENT ILLNESS: This is a 78-year-old male with past medical history of CAD, status post PCI first in 2003 with repeat in 2014 for in-stent restenosis, chart diagnosis of heart failure with preserved ejection fraction with last EF normal in 2016 cath with what sounds like recurrent stable angina; non-insulin- dependent diabetes; hypertension; hyperlipidemia; history of anemia ; PHOEBE, recently started on CPAP; gout, who presented to the emergency room twice today, first this morning for diffuse rash. The patient reports that on Sunday, he started to feel vaguely and generally unwell but without diarrhea or rash. During the day, he just describes general malaise with no other concerning features on review of systems. He and his went out for [place] food to a place they typically do not eat at on Sunday evening, and on Sunday morning, he noticed that he started developing a diffuse itchy rash about 10 to 12 hours after his meal. He also had acute onset of diarrhea with nausea, no vomiting. His diarrhea persisted over the course of Sunday with 3 to 4 times a day without blood and he had associated weakness and presyncopal symptoms while standing and thus he decided to present to the emergency room. His first ER presentation was this morning with normal vital signs and the patient was noted to have a diffuse erythematous rash. Labs showed mild leukocytosis of 11, lactic acid was elevated at 2.2, glucose was elevated at 280 , LFTs were normal. He was given IV Decadron for presumed urticaria and Benadryl and famotidine and sent home with oral prednisone. The patient reports he felt great for the first few hours after he got home from the emergency room and took his oral prednisone and Benadryl as instructed. He then said later in the afternoon he had again 2 episodes of loose diarrhea, started to feel progressively itchy and dizzy and decided to re-present to the emergency room. In this emergency room presentation, his vital signs showed temperature of 98, heart rate of 110, respiratory rate of 20, 96% on room air, and blood pressure of 140/72. Labs showed resolution of prior leukocytosis, elevated lactic acid of 3.3, stable LFTs, UA was clear from this morning and flu test was ultimately negative. Chest x-ray showed no acute thoracic pathology. His rash had actually seemed to progress since the documented exam from this morning and the hospitalist team was asked to further evaluate the patient. Of note, he has no evidence of airway compromise, no swelling in the mouth or lips or itching of throat or mouth. The patient denies starting new medications during this time. PAST MEDICAL HISTORY: 1. CAD, status post PCI in 2003, repeat in 2014 for in-stent restenosis. 2. Chart diagnosis of heart failure with preserved ejection fraction with EF normal in 2016 cath. 3. Recurrent stable angina. 4. Jia-aykgrrn-exvwjcgjj diabetes. 5. Hypertension. 6. Hyperlipidemia. 7. History of anemia. 8. PHOEBE, intermittently compliant on CPAP. 9. B12 deficiency. 10. OA of knee. 11. History of diverticulosis. 12. History of nephrolithiasis. PAST SURGICAL HISTORY: Status post cystoscopy and left ureteral stent. HOME MEDICATIONS: Include: 1. Ascorbic acid 500 mg p.o. daily. 2. Allopurinol 300 mg p.o. daily. 3. Aspirin 81 mg p.o. daily. 4. Diltiazem 100 mg p.o. daily. 5. Diphenhydramine 25 mg p.o. t.i.d. p.r.n. which was prescribed from this morning hospitalization. 6. Famotidine 20 mg p.o. daily which was prescribed from this morning hospitalization. 7. Ferrous sulfate 325 mg p.o. daily. 8. FiberCon 500 mg p.o. daily. 9. Finasteride 5 mg p.o. daily. 10. Irbesartan 75 mg p.o. daily. 11. Nitroglycerin 0.4 mg sublingual q.5 minutes p.r.n. 12. Prednisone 10 mg p.o. daily that was prescribed this morning. 13. Ticagrelor 90 mg p.o. b.i.d. 14. Vitamin B12 of 2500 mcg p.o. daily. ALLERGIES: PENICILLIN and LACTOSE intolerance. No other known drug allergies. FAMILY HISTORY: His father from heart disease in his 50s, mother from heart disease in her 50s. 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 He lives with his . He is a lifetime non-tobacco user. He is a former alcohol user but quit greater than 10 years ago with no history of illicits. REVIEW OF SYSTEMS: Constitutional: Positive for malaise, but negative for fevers, positive for some episodes of shaking chills. HEENT: Negative for headaches, vision changes, sore throat or other upper respiratory symptoms. Adamantly denies any difficulty swallowing, drooling, itchy mouth, swelling of lips or tongue. Cardiovascular: Negative for chest pain, palpitations, or orthopnea. Respiratory: Negative for shortness of breath, cough, pleuritic chest pain. GI: Positive for diarrhea. Negative for nausea or vomiting. Negative for constipation. Negative for melena or hematemesis. Negative for abdominal pain. : Negative for dysuria or hematuria. Musculoskeletal: Negative for myalgias, arthralgias, or weakness. Skin: Positive for diffuse itchy rash without discharge. Neurologic: Negative for focal weakness or numbness. Psychiatric: Negative for depression or anxiety. Endocrine: Negative for polyuria or polydipsia. Heme: Negative for easy bruising, bleeding, or lymphadenopathy. PHYSICAL EXAMINATION GENERAL APPEARANCE: This is a well-appearing elderly gentleman lying in bed, in no acute distress other than he has a mild tremor. A and O x3, although forgetful, slightly hard of hearing. VITAL SIGNS: At the time of physical exam, blood pressure is 140/72, heart rate 100 and sinus, respiratory rate 20, 96% on room air, temperature is 98 even during episode of shaking chills. HEENT: Pupils are equal and reactive. Extraocular muscles are intact. Sclerae are anicteric. Oropharynx with Mallampati 4 but no uvular edema. No evidence of swelling to tongue, buccal mucosa, posterior oropharynx or lips. NECK: Supple with no supraclavicular or cervical lymphadenopathy. RESPIRATORY: Lungs are clear to auscultation bilaterally without wheeze. CARDIAC: Regular rate and rhythm with no murmurs, rubs, or gallops. ABDOMEN: Belly is soft, nontender, and nondistended. SKIN: On bilateral lower extremities, anterior abdomen, lower sacrum, and anterior chest wall, the patient has diffuse blanchable erythematous patches with no vesicles or discharge, consistent with [id number] appearance consistent with urticarial appearance of rash. MUSCULOSKELETAL: Moves all 4 limbs spontaneously. EXTREMITIES: Lower legs are warm and well perfused with palpable pulses and no edema. NEURO: Cranial nerves II through XII are intact with no focal neurologic deficits. A and O x3. PSYCH: He is pleasant and cooperative. DIAGNOSTIC STUDIES/LAB DATA: Labs on this admission: White blood cell count 6.5, hemoglobin 14.6, hematocrit 43, platelets 183. Differential on the CBC shows no evidence of increased eosinophils, neutrophils. Lymphocytes are moderately low at 0.3. Chemistries shows sodium 135, potassium 4.5, chloride 107, carbon dioxide 18, anion gap 10, BUN 28, creatinine 1.16. Lactic acid elevated at 3.3. Glucose 301. AST 12, ALT 10, alk phos 74, total protein 5.3. UA was unremarkable from this morning. Influenza A and B are pending. Imaging includes chest x-ray which shows no acute intrathoracic pathology, unchanged from prior. EKG from this morning at 10 a.m. showed normal sinus rhythm with no evidence of acute ST changes. Lab studies and imaging reviewed by myself. ASSESSMENT AND PLAN: 78-year-old male with past medical history of coronary artery disease; non- insulin-dependent diabetes; hypertension; hyperlipidemia; obstructive sleep apnea; recently started on CPAP; gout, and heart failure with preserved ejection fraction, who presented to the emergency room twice today for acute onset of rash, diarrhea and presyncopal symptoms starting 24 hours ago with only clear citing factor of eating out at a [place]ese restaurant. The differential for this diffuse urticarial-appearing rash with associated diarrhea includes allergic reaction (IgE-mediated), although would be uncommon for an IgE-mediated response given the timing was delayed, it is not improbable , other primary causes of mast cell activation (MCAS, iMCAS) could be explored. Finally while he denies new medications or drugs and his rash seems more urticarial than mobilliform, he could have developed a Type IV hypersensitivity to an unknown exposure/drug. He also has associated elevated lactic acid with no signs of hypoperfusion or any other acute localizing infectious symptoms. He will be hospitalized for symptoms of presyncope, progressive urticarial allergic-appearing rash with failure of oral prednisone, and diarrhea. 1. Urticaria with associated diarrhea. Again, above concern for an IgE- mediated acute reaction. He has no evidence of increasing eosinophils, no obvious abnormalities on diff, as per above primary mast cell disorders could be investigated with tryptase levels if no improvement. Consider Biopsy. If this is infact a Type IV reaction, there is no evidence of LFT dysfunction to suggest DRESS or other systemic T cell mediated disease at this time. -No evidence of angioedema or airway compromise and stable for floor admission -It is possible that the oral prednisone was not well absorbed by his gut mucosa in the setting of acute diarrhea and thus it is reasonable to admit the patient for IV Decadron equivalent of 40 mg prednisone at 6 mg IV q.8 hours which can be weaned q. 12 with associated Benadryl 25 mg IV q.4 hours for a max of 6 doses. -Famotidine will also be given for max therapy of H1, H2 bev and associated glucocorticoids. -ESR added for AM labs -Blood cultures and flu swabs were taken and unlikely that there is underlying infectious component to this as he did have one episode of shaking chills, although he has no localizing signs of symptoms to suggest this. 2. Presyncopal like episodes at home. Orthostatics will be checked. He received 1 L of normal saline. We will continue on maintenance IV fluids at 150 cc for an additional 1 L. 3. Diarrhea. Stool cultures are ordered along with fecal lactoferrin. We can advance diet as tolerated. 4. Elevated lactic acid. The patient reports he is not on metformin. He has no evidence of acidosis or hypoperfusion associated with type A lactic acidosis , suspect type B lactic acidosis associated with DM and continue IV fluids and recheck in the morning. 5. CAD. We will continue home aspirin, Brilinta, statin as per prior. 6. Vey-hmtbayw-ihswwbvol diabetes. Dr. Rose is the patient's primary care and has A1c on file. We will hold on checking this in this hospitalization. He is hyperglycemic in the setting of steroids. Lispro will be added for short-term coverage. He is not on any home medications or at least on the list that is provided. A1c as per PCP. 7. Hypertension. Low-dose losartan and diltiazem as per home meds. 8. Gout. Allopurinol will be continued. 9. History of nephrolithiasis. Potassium citrate. 10. PHOEBE. We will offer CPAP as he is struggling with compliance. 11. DVT prophylaxis. We will offer the patient Lovenox for high risk given age. 12. Code status is full. 13. Disposition: Stable for admission for allergic reaction to [facility] [place] without tele. TIME SPENT: Sixty minutes was spent on planning this admission with over half of that spent directly at the bedside with the patient to provide direct patient care. Plan of care is discussed with the patient and his , they have no further questions. [id number]/CPS #: [id number]
[2019-05-05 05:38] LABS: ABS Eosinophils 0.1 10^3/ul (0-0.6); ABS Lymphocytes 0.3 10^3/ul (1.0-4.8); ABS Monocytes 0.4 10^3/ul (0-0.8); ABS Neutrophils 4.6 10^3/ul (1.5-7.7); Eosinophil % 1.6 %; Hematocrit 41 % (42-52); Hemoglobin 14.2 g/dL (14.0-18.0); Lymphocyte % 4.7 %; Mean Corpuscular HGB Conc 35 g/dL (31-36); Mean Corpuscular Hemoglobin 31 pg (27-31); Mean Corpuscular Volume 88 fL (80-94); Mean Platelet Volume 8.6 fL (7.4-10.4); Platelet Count 175 10^3/uL (150-450); Red Blood Count 4.64 10^6 /uL (4.18-5.48); Red Cell Distribution Width 15 % (10-15); White Blood Count 5.4 10^3/uL (3.5-10.8)
[2019-05-05 05:57] LABS: Albumin 2.9 g/dL (3.2-5.2); Albumin/Globulin Ratio 1.6 (1-3); BUN/Creatinine Ratio 27.3 (8-20); Calcium 7.6 mg/dL (8.6-10.3); EGFR African American 78.5 (>60); EGFR Non-African American 64.9 (>60); Globulin 1.8 g/dL (2-4); Potassium 3.8 mmol/L (3.5-5.0); Total Bilirubin 0.9 mg/dL (0.2-1.0); Total Protein 4.7 g/dL (6.4-8.9)
[2019-05-05] MEDS ORDERED: Dexamethasone IV* 4 MG/ML 1 ML (4 MG) IV SLOW PU SCH (06:00)
[2019-05-05 06:46] LABS: Erythrocyte Sed Rate 1 mm/Hr (0-19)
[2019-05-05] MEDS: Aspirin EC TAB* 81 MG TAB.EC PO SCH (08:09)
[2019-05-05] MEDS: Ticagrelor* 90 MG TAB PO SCH ×2 (08:09→21:32)
[2019-05-05] MEDS: Calcium Polycarbophil TAB* 625 MG PO SCH (08:09)
[2019-05-05] MEDS: Allopurinol TAB* 300 MG PO SCH (08:09)
[2019-05-05] MEDS: Atorvastatin* 80 MG TAB PO SCH (08:09)
[2019-05-05] MEDS: Cyanocobalamin TAB* 500 MCG PO SCH (08:09)
[2019-05-05] MEDS: Finasteride TAB* 5 MG PO SCH (08:09)
[2019-05-05] MEDS: Ascorbic Acid TAB* 500 MG PO SCH (08:09)
[2019-05-05] MEDS: Famotidine IV* 10 MG/ML 2 ML (20 mg) IV SLOW PU SCH ×2 (08:10→20:24)
[2019-05-05] MEDS: POTASSIUM CITRATE PO SCH ×2 (08:11→20:08)
--- NOTE | 2019-05-05 08:19 | PN ---
Subjective - Subjective Reason for Note: Progress Note History: I reviewed Jarred Loera's presentation with the patient and the thorough admitting history and physical provided by Dr. Erin Frazier. He has an acute illness characterized by a pruritic rash, nausea, vomiting and diarrhea. He has had 2 falls due to orthostatic hypotension/pre-syncope. An initial visit to the ED was treated with steroids and IVF - he returned to the emergency room with fresh pruritis, diarrhea and orthostatic hypotension. This morning his pruritis is improved. He has not had a bowel movement overnight. His nausea is also improved. His BP is lower than usual. He has hyperglycemia. Active Problems: Active Problems Urticaria (Acute) L50.9 Vomiting and diarrhea (Acute) R11.10, R19.7 Hypotension (arterial) (Acute) Falls (Acute) Steroid-induced hyperglycemia (Acute) R73.9, T38.0X5A Contusion of left knee (Acute) S80.02XA Contusion, toes (Acute) S90.129A Lactic acid increased (Acute) E87.2 PHOEBE (obstructive sleep apnea) (Chronic) G47.33 Type 2 diabetes mellitus treated without insulin (Chronic) E11.9 Essential (primary) hypertension (Chronic) I10 Hypercholesteremia (Chronic) E78.0 Coronary artery disease (Chronic) I25.10 Stented coronary artery (Chronic) Z95.5 Nephrolithiasis, 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 Antiplatelet or antithrombotic long-term use (Chronic) Z79.02 Current Medications: Current Medications Acetaminophen (Tylenol Tab*) 650 mg PO Q4H PRN PRN Reason: PAIN - MILD Allopurinol (Zyloprim Tab*) 300 mg PO DAILY [facility] Last Admin: 05/05/19 08:09 Dose: 300 mg Ascorbic Acid (Vitamin C Tab*) 500 mg PO DAILY [facility] Last Admin: 05/05/19 08:09 Dose: 500 mg Aspirin (Aspirin Ec Tab*) 81 mg PO DAILY [facility] Last Admin: 05/05/19 08:09 Dose: 81 mg Atorvastatin Calcium (Lipitor*) 80 mg PO DAILY [facility] Last Admin: 05/05/19 08:09 Dose: 80 mg Calcium Polycarbophil (Fibercon Tab*) 625 mg PO DAILY [facility] Last Admin: 05/05/19 08:09 Dose: 625 mg Cyanocobalamin (Vitamin B12 Tab*) 2,500 mcg PO DAILY [facility] Last Admin: 05/05/19 08:09 Dose: 2,500 mcg Dexamethasone Sodium Phosphate (Decadron Iv*) 8 mg IV SLOW PU Q8H [facility] Last Admin: 05/05/19 05:40 Dose: 8 mg Dextrose (Dextrose 50% Vial 50 Ml*) 25 ml IV PUSH .FOR FS < 60 - SS PRN PRN Reason: FS < 60 Diltiazem HCl (Cardizem Cd Cap*) 120 mg PO DAILY [facility] Last Admin: 05/05/19 08:08 Dose: Not Given Diphenhydramine HCl (Benadryl Iv*) 25 mg IV Q6H [facility] Stop: 05/06/19 08:01 Last Admin: 05/05/19 08:09 Dose: 25 mg Enoxaparin Sodium (Lovenox(*)) 40 mg SUBCUT BEDTIME [facility] Last Admin: 05/05/19 02:03 Dose: 40 mg Famotidine (Pepcid Iv*) 20 mg IV SLOW PU BID [facility] Last Admin: 05/05/19 08:10 Dose: 20 mg Finasteride (Proscar Tab*) 5 mg PO DAILY [facility] Last Admin: 05/05/19 08:09 Dose: 5 mg Insulin Human Lispro (Humalog*) 0 units SUBCUT ACHS [facility]; Protocol Last Admin: 05/05/19 08:09 Dose: 6 units Losartan Potassium (Cozaar Tab*) 25 mg PO DAILY [facility] Last Admin: 05/05/19 08:08 Dose: Not Given Nitroglycerin (Nitroglycerin Tab 0.4 Mg*) 0.4 mg SL Q5M PRN PRN Reason: CHEST PAIN Nf Med *Potassium (Citrate 100mg*) 3 dose PO BID [facility] Last Admin: 05/05/19 08:11 Dose: Not Given Ondansetron HCl (Zofran Inj*) 4 mg IV Q6H PRN PRN Reason: NAUSEA Ticagrelor (Brilinta*) 90 mg PO BID [facility] Last Admin: 05/05/19 08:09 Dose: 90 mg - Review of Systems Constitutional Symptoms: No: Fever, Night Sweats Dermatology: Rash: Yes - He has less itching. Pulmonary: Negative: Cough, Sputum, Hemoptysis, Respiratory Distress, Shortness of Breath Cardiology: Negative: Chest Pain, Palpitations Gastroenterology: Positive: Anorexia Negative: Abdominal Pain, Nausea - not this morning, Vomiting, Indigestion, Difficulty Swallowing, Heartburn, Constipation, Diarrhea - Not since last night , Blood in Stools, Change in Bowel Habits Genital - Urinary: Positive: Other - decreased volume Home Medications: Home Medications Medication Instructions Recorded Confirmed Type Allopurinol TAB* [Zyloprim 300 MG 300 mg PO DAILY 05/22/13 05/04/19 History TAB*] Aspirin [Aspirin EC] 81 mg PO DAILY 05/22/13 05/04/19 History Atorvastatin* [Lipitor 80 MG*] 80 mg DAILY 12/26/14 05/04/19 History Ticagrelor* [Brilinta 90 MG*] 90 mg PO BID 12/26/14 05/04/19 History Ascorbic Acid [Vitamin C] 500 mg PO DAILY 08/25/15 05/04/19 History Ferrous Sulfate 325 mg PO DAILY 08/25/15 05/04/19 History Fibercon 500 mg PO DAILY 08/25/15 05/04/19 History Irbesartan [Avapro] 75 mg PO DAILY 08/25/15 05/04/19 History Nitroglycerin TAB 0.4 MG* 0.4 mg SL Q5M PRN 08/25/15 05/04/19 History Potassium Citrate 300 mg PO BID 08/25/15 05/04/19 History Vitamin B-12 2,500 mcg PO DAILY 08/25/15 05/04/19 History dilTIAZem HCl [Diltiazem 24Hr ER] 120 mg PO DAILY 08/25/15 05/04/19 History Finasteride 5 mg PO DAILY 08/26/15 05/04/19 History Allopurinol TAB* [Zyloprim 300 MG 300 mg PO DAILY tab 08/27/15 05/04/19 Rx TAB*] Ascorbic Acid TAB* [Vitamin C 500 mg PO DAILY tab 08/27/15 05/04/19 Rx TAB*] Aspirin 81 mg CHEW TAB* 81 mg PO DAILY tab.chew 08/27/15 05/04/19 Rx Atorvastatin* [Lipitor 80 MG*] 80 mg PO DAILY tab 08/27/15 05/04/19 Rx Calcium Polycarbophil TAB* 625 mg PO DAILY tab 08/27/15 05/04/19 Rx [Fibercon TAB*] Cyanocobalamin TAB* [Vitamin B12 2,500 mcg PO DAILY tab 08/27/15 05/04/19 Rx TAB*] Diltiazem CD CAP* [Cardizem CD 120 mg PO DAILY cap.cd 08/27/15 05/04/19 Rx CAP*] Ferrous Sulfate TAB* 325 mg PO DAILY tab 08/27/15 05/04/19 Rx Finasteride TAB* [Proscar TAB*] 5 mg PO DAILY tab 08/27/15 05/04/19 Rx Losartan TAB* [Cozaar TAB*] 25 mg PO DAILY tab 08/27/15 05/04/19 Rx Nitroglycerin TAB 0.4 MG* 0.4 mg SL Q5M PRN #0 tab 08/27/15 05/04/19 Rx Ticagrelor* [Brilinta 90 MG*] 90 mg PO BID tab 08/27/15 05/04/19 Rx Famotidine TAB* [Pepcid 20 MG TAB*] 20 mg PO DAILY #10 tab 05/04/19 05/04/19 Rx diPHENhydraMINE PO* [Benadryl PO 25 mg PO TID PRN #30 tab 05/04/19 05/04/19 Rx 25 MG TAB*] metFORMIN* 1,000 mg PO BID 05/04/19 05/04/19 History predniSONE 10 mg TAB [Deltasone 10 10 mg PO DAILY #4 tab 05/04/19 05/04/19 Rx MG TAB*] Allergies: Allergies Allergy/AdvReac Type Severity Reaction Status Date / Time mushroom Allergy Severe Hives Unverified 05/05/19 02:51 Penicillins Allergy Mild Numbness Verified 03/19/19 11:36 lactose AdvReac Mild GI Upset Verified 05/04/19 22:42 Objective - Vital Signs Vital Signs: Vital Signs 05/04/19 05/04/19 05/04/19 19:46 21:23 21:33 Temperature 98 F Pulse Rate 114 90 91 Respiratory 20 24 25 Rate Blood Pressure 140/72 125/59 (mmHg) O2 Sat by Pulse 96 97 98 Oximetry 05/04/19 05/04/19 05/04/19 21:48 22:00 22:18 Temperature Pulse Rate 85 91 86 Respiratory 13 17 20 Rate Blood Pressure 124/65 129/65 (mmHg) O2 Sat by Pulse 98 99 96 Oximetry 05/04/19 05/04/19 05/05/19 23:30 23:55 02:02 Temperature 98.9 F 98.2 F Pulse Rate 93 92 Respiratory 19 18 14 Rate Blood Pressure 114/62 122/63 (mmHg) O2 Sat by Pulse 99 97 Oximetry 05/05/19 05/05/19 05/05/19 03:00 03:40 08:09 Temperature 99 F Pulse Rate 80 Respiratory 15 20 17 Rate Blood Pressure 106/61 (mmHg) O2 Sat by Pulse 96 Oximetry - Intake and Output Intake and Output: Intake & Output 05/02/19 05/03/19 05/04/19 05/05/19 11:59 11:59 11:59 11:59 Intake Total 662 Balance 662 Weight 205 lb Intake: IV Fluids 662 NS (0.9%) 662 Oral 0 ADLs: Meal Record Start: 05/04/19 22: 58 Freq: DAILY@0900,1400,1800 Status: Active Protocol: Created 05/04/19 22:58 System (Rec: 05/04/19 22:58 System [id number]) Intake and Output Start: 05/04/19 19: 49 Freq: Status: Active Protocol: Created 05/04/19 19:49 System (Rec: 05/04/19 19:49 System [id number]) Intake and Output Start: 05/04/19 22: 58 Freq: DAILY@0600,1400,2200 Status: Active Protocol: Created 05/04/19 22:58 System (Rec: 05/04/19 22:58 System [id number]) Document 05/05/19 05:39 [id number] (Rec: 05/05/19 05:40 [id number]) - Physical Exam General Physical Exam Comment: He has an urticaria rash on his abdomen. The lateral 3 toes on his right foot have contusions. There is a contusion beneath his left knee. He has no swelling of his mucus membranes or face General: No Cyanosis, No Anemia, No Jaundice, No Clubbing Lungs and Chest: Yes: Chest Expansion Full, Chest Expansion Symetrica, Percussion Note Resonant, Vessicular Breath Sounds. No: Crackles, Wheezes, Respiratory Distress, Use of Accessory Muscles Heart Rate and Rhythm: Regular Additional Cardiovascular: Yes: Normal Heart Sounds. No: Heart Murmur, Pedal Edema Abdominal Exam: Yes: Soft, Bowel Sounds Present. No: Distention, Rigidity, Abdominal Mass, Hepatomegaly, Splenomegaly, Abdominal Tenderness, Guarding, Rebound Tenderness - Extremities Cranial Nerves II-XII Intact: Yes Limbs: Normal Power, Normal Tone - Neuro Orientation: A/O x3 Speech: Normal Results - Results Lab Results: Laboratory Results - last 24 hr 05/04/19 05/04/19 05/04/19 20:26 20:26 20:27 WBC RBC Hgb Hct MCV MCH MCHC RDW Plt Count MPV Neut % (Auto) Lymph % (Auto) [place] % (Auto) Eos % (Auto) Baso % (Auto) Absolute Neuts (auto) Absolute Lymphs (auto) Absolute Monos (auto) Absolute Eos (auto) Absolute Basos (auto) Absolute Nucleated RBC Nucleated RBC % ESR Sodium 135 Potassium 4.2 Chloride 107 Carbon Dioxide 18 L Anion Gap 10 BUN 28 H Creatinine 1.16 Est GFR ( Amer) 73.9 Est GFR (Non-Af Amer) 61.1 BUN/Creatinine Ratio 24.1 H Glucose 301 H POC Glucose (mg/dL) 329 H Lactic Acid 3.3 H* Calcium 7.7 L Total Bilirubin 0.90 Direct Bilirubin 0.20 H Indirect Bilirubin 0.7 AST 12 L ALT 10 Alkaline Phosphatase 74 Total Protein 5.3 L Albumin 3.2 Globulin 2.1 Albumin/Globulin Ratio 1.5 05/04/19 05/05/19 05/05/19 21:04 00:47 02:07 WBC 6.5 RBC 4.81 Hgb 14.6 Hct 43 MCV 89 MCH 30 MCHC 34 RDW 15 Plt Count 183 MPV 8.7 Neut % (Auto) 91.1 Lymph % (Auto) 5.1 [place] % (Auto) 3.1 Eos % (Auto) 0.5 Baso % (Auto) 0.2 Absolute Neuts (auto) 5.9 Absolute Lymphs (auto) 0.3 L Absolute Monos (auto) 0.2 Absolute Eos (auto) 0.0 Absolute Basos (auto) 0.0 Absolute Nucleated RBC 0.0 Nucleated RBC % 0.1 ESR Sodium Potassium Chloride Carbon Dioxide Anion Gap BUN Creatinine Est GFR ( Amer) Est GFR (Non-Af Amer) BUN/Creatinine Ratio Glucose POC Glucose (mg/dL) 232 H 302 H Lactic Acid Calcium Total Bilirubin Direct Bilirubin Indirect Bilirubin AST ALT Alkaline Phosphatase Total Protein Albumin Globulin Albumin/Globulin Ratio 05/05/19 05/05/19 05/05/19 04:58 04:58 04:58 WBC 5.4 RBC 4.64 Hgb 14.2 Hct 41 L MCV 88 MCH 31 MCHC 35 RDW 15 Plt Count 175 MPV 8.6 Neut % (Auto) 86.1 Lymph % (Auto) 4.7 [place] % (Auto) 7.1 Eos % (Auto) 1.6 Baso % (Auto) 0.5 Absolute Neuts (auto) 4.6 Absolute Lymphs (auto) 0.3 L Absolute Monos (auto) 0.4 Absolute Eos (auto) 0.1 Absolute Basos (auto) 0.0 Absolute Nucleated RBC 0.0 Nucleated RBC % 0.0 ESR 1 Sodium 136 Potassium 3.8 Chloride 109 Carbon Dioxide 21 L Anion Gap 6 BUN 30 H Creatinine 1.10 Est GFR ( Amer) 78.5 Est GFR (Non-Af Amer) 64.9 BUN/Creatinine Ratio 27.3 H Glucose 181 H POC Glucose (mg/dL) Lactic Acid 1.9 Calcium 7.6 L Total Bilirubin 0.90 Direct Bilirubin Indirect Bilirubin AST 11 L ALT 8 Alkaline Phosphatase 59 Total Protein 4.7 L Albumin 2.9 L Globulin 1.8 L Albumin/Globulin Ratio 1.6 05/05/19 07:38 WBC RBC Hgb Hct MCV MCH MCHC RDW Plt Count MPV Neut % (Auto) Lymph % (Auto) [place] % (Auto) Eos % (Auto) Baso % (Auto) Absolute Neuts (auto) Absolute Lymphs (auto) Absolute Monos (auto) Absolute Eos (auto) Absolute Basos (auto) Absolute Nucleated RBC Nucleated RBC % ESR Sodium Potassium Chloride Carbon Dioxide Anion Gap BUN Creatinine Est GFR ( Amer) Est GFR (Non-Af Amer) BUN/Creatinine Ratio Glucose POC Glucose (mg/dL) 205 H Lactic Acid Calcium Total Bilirubin Direct Bilirubin Indirect Bilirubin AST ALT Alkaline Phosphatase Total Protein Albumin Globulin Albumin/Globulin Ratio Radiology Results: Patient Name: JARRED LOERA Medical Record#: [id number] Ordering Physician: Erin Frazier MD Acct.#: [id number] : 1940 Age: 78 Sex: M Location: [address] [place] [address] MEDICAL Exam Date: 05/04/192053 ADM Status: ADM IN Order Information: CHEST AP/PORT Accession Number: [id number] CPT: 16446 INDICATION: Elevated lactic acid. COMPARISON: Comparison is made with a prior study from May 04, 2019. TECHNIQUE: A portable view of the chest was obtained. FINDINGS: Cardiac and mediastinal contours appear to be within normal limits. The lungs are underinflated and clear. No pleural effusion is seen. IMPRESSION: NO EVIDENCE FOR ACTIVE CARDIOPULMONARY DISEASE. R1NF Preliminary Imaging Read R1NF <Electronically signed by Josh Zimmerman MD in OV> 05/05/19727 Dictated By: Josh Zimmerman MD Dictated Date/Time: 05/05/19725 Transcribed Date/Time: 05/05/19725 Copy to: Assessment - Problem List Assessment: Patient Problems Urticaria (Acute) Vomiting and diarrhea (Acute) Hypotension (arterial) (Acute) Falls (Acute) Steroid-induced hyperglycemia (Acute) Contusion of left knee (Acute) Contusion, toes (Acute) Lactic acid increased (Acute) PHOEBE (obstructive sleep apnea) (Chronic) Type 2 diabetes mellitus treated without insulin (Chronic) Essential (primary) hypertension (Chronic) Hypercholesteremia (Chronic) Coronary artery disease (Chronic) Stented coronary artery (Chronic) Nephrolithiasis, uric acid (Chronic) Antiplatelet or antithrombotic long-term use (Chronic) Plan: Urticaria (Acute) Vomiting and diarrhea (Acute) He has improvement of his symptoms this morning. Differential diagnoses: * Viral gastroenteritis with rash * Food poisoning with allergic reaction * Mast cell activation syndrome * Drug reaction I will treat empirically. I note he has no other features of MCAS - no angioedema, wheezing. Hypotension (arterial) (Acute) His BP is at the low end for this patient - check orthostatics Falls (Acute) x 2 Contusion of left knee (Acute) Contusion, toes (Acute)- he has some contusions to show for it Type 2 diabetes mellitus treated without insulin (Chronic)Steroid-induced hyperglycemia (Acute) He is on large doses of steroids - I will taper and cover with insulin Lactic acid increased (Acute) This has resolved Secondary diagnoses PHOEBE (obstructive sleep apnea) (Chronic) Essential (primary) hypertension (Chronic) Hypercholesteremia (Chronic) Coronary artery disease (Chronic) Stented coronary artery (Chronic) Nephrolithiasis, uric acid (Chronic) Antiplatelet or antithrombotic long-term use (Chronic) I discussed the above with Jarred Loera and also called his Marielle Hussein - he will need hospitalization until tomorrow.
[2019-05-05] MEDS ORDERED: Dextrose 50% VIAL 50 ml IV PUSH PRN (08:44)
[2019-05-05] MEDS ORDERED: Diltiazem CD CAP* 120 MG PO SCH (09:00)
[2019-05-05] MEDS ORDERED: Losartan TAB* 25 MG PO SCH (09:00)
[2019-05-05] MEDS: Insulin GLARGINE(*) 1 UNITS UNIT SUBCUT SCH (10:25)
[2019-05-05] MEDS: Dexamethasone IV* 4 MG/ML 1 ML (4 MG) IV SLOW PU SCH ×2 (10:26→17:59)
[2019-05-05] MEDS ORDERED: Insulin LISPRO* 1 UNITS UNIT SUBCUT ONE (18:00)
[2019-05-05 19:52] LABS: Influenza A Molecular NEGATIVE (Negative); Influenza B Molecular NEGATIVE (Negative)
[2019-05-05] MEDS: Clopidogrel TAB* 75 MG PO SCH (22:06)
[2019-05-06] MEDS: Dexamethasone IV* 4 MG/ML 1 ML (4 MG) IV SLOW PU SCH ×2 (01:07→07:59)
[2019-05-06] MEDS: diPHENhydraMINE IV* 50 MG/ML 1 ml VIAL (BENADRYL) IV SCH ×2 (02:15→07:46)
[2019-05-06 07:51] LABS: ABS Lymphocytes 0.5 10^3/ul (1.0-4.8); ABS Monocytes 0.4 10^3/ul (0-0.8); ABS Neutrophils 4.2 10^3/ul (1.5-7.7); Eosinophil % 0.1 %; Hematocrit 37 % (42-52); Hemoglobin 12.8 g/dL (14.0-18.0); Mean Corpuscular HGB Conc 35 g/dL (31-36); Mean Corpuscular Hemoglobin 31 pg (27-31); Mean Corpuscular Volume 88 fL (80-94); Mean Platelet Volume 8.7 fL (7.4-10.4); Platelet Count 150 10^3/uL (150-450); Red Blood Count 4.16 10^6 /uL (4.18-5.48); Red Cell Distribution Width 15 % (10-15); White Blood Count 5.1 10^3/uL (3.5-10.8)
[2019-05-06] MEDS: Atorvastatin* 80 MG TAB PO SCH (07:51)
[2019-05-06] MEDS: Calcium Polycarbophil TAB* 625 MG PO SCH (07:51)
[2019-05-06] MEDS: Cyanocobalamin TAB* 500 MCG PO SCH (07:51)
[2019-05-06] MEDS: Clopidogrel TAB* 75 MG PO SCH (07:52)
[2019-05-06] MEDS: Aspirin EC TAB* 81 MG TAB.EC PO SCH (07:52)
[2019-05-06] MEDS: Allopurinol TAB* 300 MG PO SCH (07:52)
[2019-05-06] MEDS: Finasteride TAB* 5 MG PO SCH (07:52)
[2019-05-06] MEDS: Ascorbic Acid TAB* 500 MG PO SCH (07:52)
[2019-05-06] MEDS: POTASSIUM CITRATE PO SCH (07:53)
[2019-05-06] MEDS: Famotidine IV* 10 MG/ML 2 ML (20 mg) IV SLOW PU SCH (07:54)
[2019-05-06 08:10] LABS: BUN/Creatinine Ratio 33.7 (8-20); C Reactive Protein 31.91 mg/L (<8.01); Calcium 7.9 mg/dL (8.6-10.3); EGFR African American 100.3 (>60); EGFR Non-African American 82.9 (>60); Potassium 3.8 mmol/L (3.5-5.0)
--- NOTE | 2019-05-06 08:45 | PN ---
Subjective - Subjective Reason for Note: Discharge Note History: See dictated discharge summary. He has had x 2 loose BM yesterday - the second small compared with the first. His appetite has returned. He has no abdominal pain. The rash has resolved - some vestiges on his fingers where it started. Glucose levels are elevated due to the steroids. Current Medications: Current Medications Acetaminophen (Tylenol Tab*) 650 mg PO Q4H PRN PRN Reason: PAIN - MILD Allopurinol (Zyloprim Tab*) 300 mg PO DAILY [facility] Last Admin: 05/06/19 07:52 Dose: 300 mg Ascorbic Acid (Vitamin C Tab*) 500 mg PO DAILY [facility] Last Admin: 05/06/19 07:52 Dose: 500 mg Aspirin (Aspirin Ec Tab*) 81 mg PO DAILY [facility] Last Admin: 05/06/19 07:52 Dose: 81 mg Atorvastatin Calcium (Lipitor*) 80 mg PO DAILY [facility] Last Admin: 05/06/19 07:51 Dose: 80 mg Calcium Polycarbophil (Fibercon Tab*) 625 mg PO DAILY [facility] Last Admin: 05/06/19 07:51 Dose: 625 mg Clopidogrel Bisulfate (Plavix Tab*) 75 mg PO DAILY [facility] Last Admin: 05/06/19 07:52 Dose: 75 mg Cyanocobalamin (Vitamin B12 Tab*) 2,500 mcg PO DAILY [facility] Last Admin: 05/06/19 07:51 Dose: 2,500 mcg Dexamethasone Sodium Phosphate (Decadron Iv*) 2 mg IV SLOW PU Q8H [facility] Last Admin: 05/06/19 07:59 Dose: 2 mg Dextrose (Dextrose 50% Vial 50 Ml*) 25 ml IV PUSH .FOR FS < 60 - SS PRN PRN Reason: FS < 60 Dextrose (Dextrose 50% Vial 50 Ml*) 25 ml IV PUSH .FOR FS < 60 - SS PRN PRN Reason: FS < 60 Enoxaparin Sodium (Lovenox(*)) 40 mg SUBCUT BEDTIME [facility] Last Admin: 05/05/19 20:17 Dose: 40 mg Famotidine (Pepcid Iv*) 20 mg IV SLOW PU BID [facility] Last Admin: 05/06/19 07:54 Dose: 20 mg Finasteride (Proscar Tab*) 5 mg PO DAILY [facility] Last Admin: 05/06/19 07:52 Dose: 5 mg Insulin Glargine (Lantus(*)) 16 units SUBCUT Q24H [facility] Last Admin: 05/05/19 10:25 Dose: 16 units Insulin Human Lispro (Humalog*) 0 units SUBCUT ACHS [facility]; Protocol Last Admin: 05/05/19 20:33 Dose: 9 units Insulin Human Lispro (Humalog*) 0 units SUBCUT AC [facility]; Protocol Last Admin: 05/05/19 17:31 Dose: Not Given Nitroglycerin (Nitroglycerin Tab 0.4 Mg*) 0.4 mg SL Q5M PRN PRN Reason: CHEST PAIN Nf Med *Potassium (Citrate 100mg*) 3 dose PO BID [facility] Last Admin: 05/06/19 07:53 Dose: Not Given Ondansetron HCl (Zofran Inj*) 4 mg IV Q6H PRN PRN Reason: NAUSEA Home Medications: Home Medications Medication Instructions Recorded Confirmed Type Allopurinol TAB* [Zyloprim 300 MG 300 mg PO DAILY 05/22/13 05/04/19 History TAB*] Aspirin [Aspirin EC] 81 mg PO DAILY 05/22/13 05/04/19 History Atorvastatin* [Lipitor 80 MG*] 80 mg DAILY 12/26/14 05/04/19 History Ascorbic Acid [Vitamin C] 500 mg PO DAILY 08/25/15 05/04/19 History Ferrous Sulfate 325 mg PO DAILY 08/25/15 05/04/19 History Fibercon 500 mg PO DAILY 08/25/15 05/04/19 History Irbesartan [Avapro] 75 mg PO DAILY 08/25/15 05/04/19 History Nitroglycerin TAB 0.4 MG* 0.4 mg SL Q5M PRN 08/25/15 05/04/19 History Potassium Citrate 300 mg PO BID 08/25/15 05/04/19 History Vitamin B-12 2,500 mcg PO DAILY 08/25/15 05/04/19 History dilTIAZem HCl [Diltiazem 24Hr ER] 120 mg PO DAILY 08/25/15 05/04/19 History Finasteride 5 mg PO DAILY 08/26/15 05/04/19 History Allopurinol TAB* [Zyloprim 300 MG 300 mg PO DAILY tab 08/27/15 05/04/19 Rx TAB*] Ascorbic Acid TAB* [Vitamin C 500 mg PO DAILY tab 08/27/15 05/04/19 Rx TAB*] Aspirin 81 mg CHEW TAB* 81 mg PO DAILY tab.chew 08/27/15 05/04/19 Rx Atorvastatin* [Lipitor 80 MG*] 80 mg PO DAILY tab 08/27/15 05/04/19 Rx Calcium Polycarbophil TAB* 625 mg PO DAILY tab 08/27/15 05/04/19 Rx [Fibercon TAB*] Cyanocobalamin TAB* [Vitamin B12 2,500 mcg PO DAILY tab 08/27/15 05/04/19 Rx TAB*] Diltiazem CD CAP* [Cardizem CD 120 mg PO DAILY cap.cd 08/27/15 05/04/19 Rx CAP*] Ferrous Sulfate TAB* 325 mg PO DAILY tab 08/27/15 05/04/19 Rx Finasteride TAB* [Proscar TAB*] 5 mg PO DAILY tab 08/27/15 05/04/19 Rx Losartan TAB* [Cozaar TAB*] 25 mg PO DAILY tab 08/27/15 05/04/19 Rx Nitroglycerin TAB 0.4 MG* 0.4 mg SL Q5M PRN #0 tab 08/27/15 05/04/19 Rx Famotidine TAB* [Pepcid 20 MG TAB*] 20 mg PO DAILY #10 tab 05/04/19 05/04/19 Rx diPHENhydraMINE PO* [Benadryl PO 25 mg PO TID PRN #30 tab 05/04/19 05/04/19 Rx 25 MG TAB*] metFORMIN* 1,000 mg PO BID 05/04/19 05/04/19 History predniSONE 10 mg TAB [Deltasone 10 10 mg PO DAILY #4 tab 05/04/19 05/04/19 Rx MG TAB*] Clopidogrel Bisulfate [Plavix] 75 mg PO DAILY WITH MEAL 05/05/19 05/05/19 History Allergies: Allergies Allergy/AdvReac Type Severity Reaction Status Date / Time mushroom Allergy Severe Hives Unverified 05/05/19 02:51 Penicillins Allergy Mild Numbness Verified 03/19/19 11:36 lactose AdvReac Mild GI Upset Verified 05/04/19 22:42 Objective - Vital Signs Vital Signs: Vital Signs 05/05/19 05/05/19 05/05/19 09:09 10:09 11:35 Temperature 98.3 F Pulse Rate 73 Respiratory 17 16 16 Rate Blood Pressure 122/51 (mmHg) O2 Sat by Pulse 96 Oximetry 05/05/19 05/05/19 05/05/19 13:36 14:36 15:45 Temperature 97.4 F Pulse Rate 70 Respiratory 17 15 15 Rate Blood Pressure 130/65 (mmHg) O2 Sat by Pulse 97 Oximetry 05/05/19 05/05/19 05/05/19 16:21 16:22 19:24 Temperature 97.6 F 98.0 F 97.8 F Pulse Rate 66 82 94 Respiratory 18 18 16 Rate Blood Pressure 133/70 120/70 148/73 (mmHg) O2 Sat by Pulse 98 98 94 Oximetry 05/05/19 05/05/19 05/05/19 20:00 20:14 21:20 Temperature Pulse Rate Respiratory 18 17 18 Rate Blood Pressure (mmHg) O2 Sat by Pulse Oximetry 05/05/19 05/06/19 05/06/19 23:20 02:15 03:15 Temperature 98 F Pulse Rate 78 Respiratory 18 18 18 Rate Blood Pressure 123/83 (mmHg) O2 Sat by Pulse 98 Oximetry 05/06/19 05/06/19 05/06/19 04:17 07:15 07:46 Temperature 97.4 F 97.4 F Pulse Rate 81 56 Respiratory 16 18 18 Rate Blood Pressure 142/94 136/84 (mmHg) O2 Sat by Pulse 97 98 Oximetry - Intake and Output Intake and Output: Intake & Output 05/03/19 05/04/19 05/05/19 05/06/19 11:59 11:59 11:59 11:59 Intake Total 1142 1882 Balance 1142 1882 Weight 205 lb Intake: IV Fluids 662 332 NS (0.9%) 662 332 Oral 480 1550 Other: Estimated Void Large # Bowel Movements 0 Estimated Stool Amount Large # Voids 1 ADLs: Meal Record Start: 05/04/19 22: 58 Freq: DAILY@0900,1400,1800 Status: Active Protocol: Created 05/04/19 22:58 System (Rec: 05/04/19 22:58 System [id number]) Document 05/05/19 09:00 [id number] (Rec: 05/05/19 09:48 [id number] MED-C09) Document 05/05/19 13:24 [id number] (Rec: 05/05/19 13:27 [id number] MED-C09) Document 05/05/19 18:00 [id number] (Rec: 05/05/19 18:27 [id number] MED-C09) Intake and Output Start: 05/04/19 19: 49 Freq: Status: Active Protocol: Created 05/04/19 19:49 System (Rec: 05/04/19 19:49 System [id number]) Intake and Output Start: 05/04/19 22: 58 Freq: DAILY@0600,1400,2200 Status: Active Protocol: Created 05/04/19 22:58 System (Rec: 05/04/19 22:58 System MED-C07) Document 05/05/19 05:39 [id number] (Rec: 05/05/19 05:40 [id number] MED-C09) Document 05/05/19 13:24 [id number] (Rec: 05/05/19 13:27 [id number] MED-C09) Document 05/05/19 22:00 [id number] (Rec: 05/05/19 22:10 [id number] MED-C11) Document 05/06/19 05:38 [id number] (Rec: 05/06/19 05:38 [id number] MED-C09) - Physical Exam General Physical Exam Comment: skin improved General: No Cyanosis, No Anemia, No Jaundice, No Clubbing Lungs and Chest: Yes: Chest Expansion Full, Chest Expansion Symetrica, Percussion Note Resonant, Vessicular Breath Sounds. No: Crackles, Wheezes Heart Rate and Rhythm: Regular Additional Cardiovascular: No: Heart Murmur, Pedal Edema Abdominal Exam: Yes: Soft, Bowel Sounds Present. No: Distention Results - Results Lab Results: Laboratory Results - last 24 hr 05/04/19 05/05/19 05/05/19 21:06 11:44 13:17 WBC RBC Hgb Hct MCV MCH MCHC RDW Plt Count MPV Neut % (Auto) Lymph % (Auto) Wolfe % (Auto) Eos % (Auto) Baso % (Auto) Absolute Neuts (auto) Absolute Lymphs (auto) Absolute Monos (auto) Absolute Eos (auto) Absolute Basos (auto) Absolute Nucleated RBC Nucleated RBC % Sodium Potassium Chloride Carbon Dioxide Anion Gap BUN Creatinine Est GFR ( Amer) Est GFR (Non-Af Amer) BUN/Creatinine Ratio Glucose POC Glucose (mg/dL) 365 H 310 H Calcium C-Reactive Protein Influenza A (Rapid) Cancelled Influenza B (Rapid) Cancelled 05/05/19 05/05/19 05/05/19 14:33 17:08 19:20 WBC RBC Hgb Hct MCV MCH MCHC RDW Plt Count MPV Neut % (Auto) Lymph % (Auto) Wolfe % (Auto) Eos % (Auto) Baso % (Auto) Absolute Neuts (auto) Absolute Lymphs (auto) Absolute Monos (auto) Absolute Eos (auto) Absolute Basos (auto) Absolute Nucleated RBC Nucleated RBC % Sodium Potassium Chloride Carbon Dioxide Anion Gap BUN Creatinine Est GFR ( Amer) Est GFR (Non-Af Amer) BUN/Creatinine Ratio Glucose POC Glucose (mg/dL) 231 H 192 H Calcium C-Reactive Protein Influenza A (Rapid) Negative Influenza B (Rapid) Negative 05/05/19 05/06/19 05/06/19 20:23 07:28 07:28 WBC 5.1 RBC 4.16 L Hgb 12.8 L Hct 37 L MCV 88 MCH 31 MCHC 35 RDW 15 Plt Count 150 MPV 8.7 Neut % (Auto) 82.6 Lymph % (Auto) 9.0 Wolfe % (Auto) 8.2 Eos % (Auto) 0.1 Baso % (Auto) 0.1 Absolute Neuts (auto) 4.2 Absolute Lymphs (auto) 0.5 L Absolute Monos (auto) 0.4 Absolute Eos (auto) 0.0 Absolute Basos (auto) 0.0 Absolute Nucleated RBC 0.0 Nucleated RBC % 0.0 Sodium 137 Potassium 3.8 Chloride 108 Carbon Dioxide 23 Anion Gap 6 BUN 30 H Creatinine 0.89 Est GFR ( Amer) 100.3 Est GFR (Non-Af Amer) 82.9 BUN/Creatinine Ratio 33.7 H Glucose 200 H POC Glucose (mg/dL) 285 H Calcium 7.9 L C-Reactive Protein 31.91 H Influenza A (Rapid) Influenza B (Rapid) 05/06/19 07:40 WBC RBC Hgb Hct MCV MCH MCHC RDW Plt Count MPV Neut % (Auto) Lymph % (Auto) Wolfe % (Auto) Eos % (Auto) Baso % (Auto) Absolute Neuts (auto) Absolute Lymphs (auto) Absolute Monos (auto) Absolute Eos (auto) Absolute Basos (auto) Absolute Nucleated RBC Nucleated RBC % Sodium Potassium Chloride Carbon Dioxide Anion Gap BUN Creatinine Est GFR ( Amer) Est GFR (Non-Af Amer) BUN/Creatinine Ratio Glucose POC Glucose (mg/dL) 220 H Calcium C-Reactive Protein Influenza A (Rapid) Influenza B (Rapid) Assessment - Problem List Assessment: Patient Problems Contusion of left knee (Acute) Contusion, toes (Acute) Falls (Acute) Hypotension (arterial) (Acute) Lactic acid increased (Acute) Steroid-induced hyperglycemia (Acute) Urticaria (Acute) Vomiting and diarrhea (Acute) Antiplatelet or antithrombotic long-term use (Chronic) Coronary artery disease (Chronic) Essential (primary) hypertension (Chronic) Hypercholesteremia (Chronic) Nephrolithiasis, uric acid (Chronic) PHOEBE (obstructive sleep apnea) (Chronic) Stented coronary artery (Chronic) Type 2 diabetes mellitus treated without insulin (Chronic) Plan: His gastroenteritis is much improved. He is hydrated. The rash has resolved. He is ready for discharge. I will taper his steroids. We will determine by his clinical course if this is a response to a viral gastroenteritis or due to a mast cell pathology. I will return him to oral hypoglycemic agents. I explained this to the patient and he agrees to this management plan.
[2019-05-06] MEDS: Insulin GLARGINE(*) 1 UNITS UNIT SUBCUT SCH (09:58)
[2019-05-06] MEDS: Insulin LISPRO* 1 UNITS UNIT SUBCUT SCH ×4 (09:58→13:20)
--- NOTE | 2019-05-06 12:20 | DS ---
DISCHARGE SUMMARY: DATE OF ADMISSION: 05/04/19 DATE OF DISCHARGE: 05/06/19 DISCHARGE DIAGNOSES: 1. Nausea, vomiting, diarrhea. 2. Generalized pruritic skin eruption. Differential diagnosis: Viral infectious gastroenteritis, food poisoning, mast cell activation syndrome, drug reaction. 3. Times 2 falls, contusion lateral 3 toes and contusion left knee. Comorbidities: Hypotension, lactic acid increase without acidosis. SECONDARY DIAGNOSES: 1. Essential hypertension. 2. Hypercholesterolemia. 3. Coronary artery disease. 4. History of stented coronary artery. 5. Nephrolithiasis. 6. Obstructive sleep apnea. HISTORY OF PRESENT ILLNESS: Wayne Loera is a 78-year-old white male. His presentation is documented in Dr. Erin Frazier's admitting history and physical. In short, he had 2 presentations to the emergency room; on the first occasion, he noted that he had become generally unwell on Sunday and then developed worsening malaise. They had some Spanish food Sunday morning, a diffuse itchy rash starting on his hands and then extending around the rest of his body. Then he had an acute episode of diarrhea and nausea but no vomiting. His diarrhea persisted over Sunday without blood and had worsening weakness and presyncopal feelings. He had 2 falls in which he injured his right foot and his left knee. He went to the emergency room, was given some IV Decadron, he felt better and went home and then had further episodes of diarrhea and lightheadedness and came back to the emergency room. PHYSICAL EXAMINATION: Vital Signs: Blood pressure 140/72, heart rate 100, respiratory rate 20, oxygen saturation 96% on room air. Bilateral lower extremities, anterior abdomen, lower sacrum, anterior abdominal wall and chest wall diffuse blanchable erythematous patches, no vesiculation or discharge, consistent with urticaria, otherwise no focal findings. INITIAL LABS: White count 6.5, hemoglobin 14.6, hematocrit 43, platelets 183, no evidence of eosinophilia or neutrophilia. Chemistry showed a glucose of 301 , otherwise no abnormalities. Influenza was negative. Chest x-ray showed no pathology. EKG, sinus rhythm with no acute changes. Initial impression, it was thought that this might be related to the Spanish food he ate, a GE-mediated allergic reaction was also possible. He was admitted to the hospital for IV fluids and IV steroids. LABORATORY FINDINGS: His CBC remained consistent, ESR was 1. Labs were significant for hyperglycemia during the hospital stay as a result of dexamethasone. His CRP was 31.91. Influenza studies were negative. HOSPITAL COURSE: He had resolution of the rash by the morning after admission and during his days in the hospital, the nausea cleared up, he became hungry again and his appetite was normal. He had 2 loose stools, 1 large, 1 small on penultimate day in the hospital. On day of discharge, he is feeling much better. He has no abdominal pain, nausea, vomiting or diarrhea. He has no rash, no pruritus. He has not ambulated much but he is feeling much steadier. PHYSICAL EXAM ON THE DAY OF DISCHARGE: Vital Signs: Temperature 97.4, heart rate 56, respirations 18, oxygen saturation 98%, blood pressure 136/84. He has no cyanosis, edema, jaundice, clubbing or lymphadenopathy. Cardiovascular system: His pulse is regular, normal character and volume. Venous pressure not elevated. Heart sounds are normal. No added sounds or murmurs. No pedal edema. Respiratory System: His chest was clear. Abdomen: No distention, masses, tenderness or organomegaly. ASSESSMENT AND PLAN: Acute illness characterized by nausea, vomiting, diarrhea and diffuse urticarial eruption. We have a differential diagnosis and I would place it in this order of probability. 1. Viral gastroenteritis with a skin reaction, atypical food poisoning with a rash, mast cell activation syndrome, drug reaction. At this time, he is covered with steroids and hence we will have to wait for the taper to see whether this returns and from that I will continue to work this up. He is ready today for discharge. 2. Type 2 diabetes mellitus. This is currently challenged by the steroids that he is taking. His blood sugars are not super high. I am tapering his steroids some more today and I do not think he will need to be on insulin as an outpatient; however, we can start it depending on his blood sugars which he will be following. I discussed this both with the patient and his . 3. Essential hypertension. This is now under control. 4. Hypercholesterolemia. He will resume his usual medications. 5. Nephrolithiasis. This is not an acute problem. 6. Obstructive sleep apnea, a comorbidity. 7. Coronary artery disease. This is not exacerbated. I discussed the above with the patient and his , the latter on the phone. He will come in and see me in the next 2 or 3 days. They are to report to me immediately if there is any pruritus or if he has any symptoms of nausea, vomiting or diarrhea in which case I will increase the dose of dexamethasone. Also, I will restart insulin should his blood sugars increase. DISCHARGE MEDICATIONS: He will resume his usual medications plus: 1. Dexamethasone 4 mg twice daily for 2 days, 2 mg twice daily for 2 days, 2 mg once a day for 2 days, 1 mg a day for 2 days and then discontinue. 2. Aspirin 81 mg a day. 3. Allopurinol 300 mg a day. 4. Atorvastatin 80 mg q.h.s. 5. Vitamin C 500 mg daily. 6. Vitamin B12 one tablet daily. 7. Fibercon 500 mg one tablet daily. 8. Potassium citrate 300 mg daily. 9. Finasteride 5 mg daily. 10. Diltiazem slow release 120 mg daily. 11. Losartan 25 mg daily. 12. Ferrous sulfate 325 mg daily. 13. Benadryl 25 mg as needed for rash. 14. Famotidine 20 mg a day. 15. Metformin 1000 twice daily. 16. Clopidogrel 75 mg a day. [id number]/[facility] #: [id number] MTDD
[2019-05-06 15:24] VITALS: BP 146/85
== END 2019-05-06 15:30 | disposition home or self-care (01) | DRG 392 ==
LOC: ED 19:43 → MED 22:09
PROVIDERS: ADMIT Internal Medicine; ATTEND Internal Medicine
DX: A08.4 Viral intestinal infection, unspecified (principal); E87.2 Acidosis; A05.9 Bacterial foodborne intoxication, unspecified; D89.40 Mast cell activation, unspecified; I10 Essential (primary) hypertension; E78.00 Pure hypercholesterolemia, unspecified; G47.33 Obstructive sleep apnea (adult) (pediatric); I25.10 Atherosclerotic heart disease of native coronary artery without angina pectoris; N20.0 Calculus of kidney; E53.8 Deficiency of other specified B group vitamins; M17.10 Unilateral primary osteoarthritis, unspecified knee; I95.1 Orthostatic hypotension; L29.9 Pruritus, unspecified; L50.9 Urticaria, unspecified; S90.121A Contusion of right lesser toe(s) without damage to nail, initial encounter; E11.9 Type 2 diabetes mellitus without complications; T38.0X5A Adverse effect of glucocorticoids and synthetic analogues, initial encounter; S80.02XA Contusion of left knee, initial encounter; E09.65 Drug or chemical induced diabetes mellitus with hyperglycemia; K57.90 Diverticulosis of intestine, part unspecified, without perforation or abscess without bleeding; W18.30XA Fall on same level, unspecified, initial encounter; Z95.5 Presence of coronary angioplasty implant and graft; Z79.84 Long term (current) use of oral hypoglycemic drugs; Z79.82 Long term (current) use of aspirin; Z79.899 Other long term (current) drug therapy; Z88.0 Allergy status to penicillin; Z91.011 Allergy to milk products; Z82.49 Family history of ischemic heart disease and other diseases of the circulatory system; Z99.89 Dependence on other enabling machines and devices; Y92.9 Unspecified place or not applicable; Z79.02 Long term (current) use of antithrombotics/antiplatelets
CPT/HCPCS: 36415; 71045; 80048; 80053; 80076; 83605; 83630; 85025; 85652; 86140; 87040; 87045; 87046; 87899; 99284; A9270-GY; J1100; J1200; J1650

== ENCOUNTER 2020-08-02 20:05 | Observation (INO) ==
[2020-08-02] MEDS ORDERED: NS 0.9% 1000 ml BAG 1,000 ML IV ONE (20:09)
[2020-08-02] MEDS ORDERED: Iodixanol (CONTRAST) 320 MG/ML 100 ML SDV IV ONE (20:20)
[2020-08-02 20:27] LABS: ABS Eosinophils 0.1 10^3/ul (0-0.6); ABS Lymphocytes 0.5 10^3/ul (1.0-4.8); ABS Monocytes 0.2 10^3/ul (0-0.8); ABS Neutrophils 5.2 10^3/ul (1.5-7.7); Eosinophil % 1.2 %; Hematocrit 42 % (42-52); Hemoglobin 14.3 g/dL (14.0-18.0); Lymphocyte % 8.5 %; Mean Corpuscular HGB Conc 34 g/dL (31-36); Mean Corpuscular Hemoglobin 30 pg (27-31); Mean Corpuscular Volume 89 fL (80-94); Mean Platelet Volume 8.5 fL (7.4-10.4); Nucleated Red Blood Cells % 0.1; Platelet Count 172 10^3/uL (150-450); Red Blood Count 4.75 10^6 /uL (4.18-5.48); Red Cell Distribution Width 15 % (10-15); White Blood Count 6.1 10^3/uL (3.5-10.8)
[2020-08-02] MEDS ORDERED: Alteplase (100 mg Vial) 100 mg VIAL ONE (20:33)
[2020-08-02 20:35] LABS: Activated Partial Thrombo Time 30.8 seconds (26.0-38.0); INR 1.02 (0.82-1.09)
[2020-08-02 20:48] LABS: ALT 15 U/L (7-52); AST 15 U/L (13-39); Albumin 4.2 g/dL (3.2-5.2); Albumin/Globulin Ratio 1.6 (1-3); Alkaline Phosphatase 94 U/L (34-104); Anion Gap 6 mmol/L (2-11); BUN/Creatinine Ratio 27.9 (8-20); Blood Urea Nitrogen 29 mg/dL (6-24); CO2 Carbon Dioxide 29 mmol/L (22-32); Calcium 9.1 mg/dL (8.6-10.3); Chloride 100 mmol/L (101-111); Cholesterol 91 mg/dL; EGFR African American 83.6 (>60); EGFR Non-African American 69.1 (>60); Globulin 2.7 g/dL (2-4); Glucose 307 mg/dL (70-100); HDL Cholesterol 35.3 mg/dL; LDL Cholesterol 42 mg/dL; Potassium 5.2 mmol/L (3.5-5.0); Sodium 135 mmol/L (135-145); Total Protein 6.9 g/dL (6.4-8.9); Triglycerides 69 mg/dL; Troponin I 0.01 ng/mL (<0.03)
[2020-08-02 21:52] LABS: Urine Appearance Clear; Urine Bilirubin Negative (Negative); Urine Blood Negative (Negative); Urine Color Yellow; Urine Glucose 3+(>=500 mg/dL) (Negative); Urine Ketones Negative (Negative); Urine Nitrite Negative (Negative); Urine Protein 2+(100 mg/dL) (Negative); Urine Specific Gravity 1.025 (1.002-1.030); Urine Urobilinogen Negative (Negative)
[2020-08-02 22:11] LABS: Urine Bacteria Absent (Absent); Urine Red Blood Cell Trace(0-2/hpf) (Absent); Urine White Blood Cell Trace(0-5/hpf) (Absent)
[2020-08-02 22:39] LABS: C Reactive Protein < 1.00 mg/L (<8.01)
[2020-08-02] MEDS ORDERED: Dextrose 50% Syringe 50 ml 25 GM/50 ML SYRINGE IV PUSH PRN (23:25)
[2020-08-03 06:48] LABS: ABS Eosinophils 0.1 10^3/ul (0-0.6); ABS Lymphocytes 1.1 10^3/ul (1.0-4.8); ABS Neutrophils 5.4 10^3/ul (1.5-7.7); Eosinophil % 1.9 %; Hematocrit 39 % (42-52); Hemoglobin 13.5 g/dL (14.0-18.0); Lymphocyte % 14.6 %; Mean Corpuscular HGB Conc 35 g/dL (31-36); Mean Corpuscular Hemoglobin 31 pg (27-31); Mean Corpuscular Volume 88 fL (80-94); Mean Platelet Volume 8.3 fL (7.4-10.4); Platelet Count 159 10^3/uL (150-450); Red Blood Count 4.43 10^6 /uL (4.18-5.48); Red Cell Distribution Width 15 % (10-15); White Blood Count 7.7 10^3/uL (3.5-10.8)
[2020-08-03 07:07] LABS: BUN/Creatinine Ratio 29.4 (8-20); Calcium 8.4 mg/dL (8.6-10.3); EGFR African American 105.5 (>60); EGFR Non-African American 87.2 (>60); Potassium 4.1 mmol/L (3.5-5.0)
[2020-08-03] MEDS ORDERED: Calcium Polycarbophil 625mg TB PO SCH (09:00)
[2020-08-03] MEDS ORDERED: NF: Cyanocobalamin 2,500 mcg TAB SL SCH (09:00)
[2020-08-03] MEDS ORDERED: Aspirin EC 81 mg TAB.EC (enteric coated) PO SCH (09:00)
[2020-08-03] MEDS ORDERED: Enoxaparin 40 MG/0.4 ML SYR SUBCUT SCH (10:00)
[2020-08-03 13:12] LABS: TSH Ultra Thyroid Stim Horm 0.75 mcIU/mL (0.34-5.60)
[2020-08-03 16:18] VITALS: BP 123/55
== END 2020-08-03 17:55 | disposition home or self-care (01) ==
LOC: ED 20:05 → MEDTELE 20:05
PROVIDERS: ADMIT Internal Medicine; ATTEND Internal Medicine